=== PATIENT | male | born 1945 | race Two or more races ===

== ENCOUNTER 2021-09-02 09:56 | Outpatient (REF) | payer OTHER, SELFPAY ==
[2021-09-02 11:43] LABS: Vitamin B12 371 pg/mL (200-900)
== END 2021-09-02 09:57 | disposition home or self-care (01) ==
LOC: HO.LAB 09:56
PROVIDERS: Psychiatry & Neurology Neurology; PCP Internal Medicine; Visit Provider Internal Medicine
DX: G31.84 Mild cognitive impairment of uncertain or unknown etiology (principal)
CPT/HCPCS: 36415; 82607

== ENCOUNTER → 2022-06-23 11:20 | Outpatient (BNVA) | payer OTHER, SELFPAY | PROVIDERS: PCP Internal Medicine; Visit Provider Nurse Practitioner | DX: Z01.818 Encounter for other preprocedural examination (principal); K74.60 Unspecified cirrhosis of liver; D64.9 Anemia, unspecified; F10.11 Alcohol abuse, in remission | CPT/HCPCS: 99202 ==

== ENCOUNTER 2022-06-24 12:21 | Outpatient (REF) | payer OTHER, SELFPAY ==
[2022-06-24 12:45] LABS: MANUAL DIFF FLAG NO
[2022-06-24 13:35] LABS: Basophils Percent Auto 0.6 % (0-2); Eosinophils Absolute Auto 0.1 X10*3/uL (0.0-0.4); Hematocrit 44.4 % (42.0-52.0); Hemoglobin 15.3 g/dl (14.0-18.0); Imm Gran Abs Auto 0.01 X10*3/uL (0.00-0.03); Imm Gran Pct Auto 0.1 % (0.0-0.4); Lymphocytes Absolute Auto 2.9 X10*3/uL (1.2-4.9); Lymphocytes Percent Auto 40.1 % (20-40); Mean Corpuscular HGB Conc 34.5 g/dl (31.0-36.0); Mean Corpuscular Hemoglobin 33.3 pg (27.0-33.0); Mean Corpuscular Volume 96.5 fL (80.0-98.0); Mean Platelet Volume 9.8 fL (9.4-12.4); Monocytes Absolute Auto 0.6 X10*3/uL (0.1-1.2); Monocytes Percent Auto 7.7 % (2-11); Neutrophils Absolute Auto 3.7 x10*3/uL (2.0-8.3); Neutrophils Percent Auto 50.5 % (45-73); Platelet Count 234 X10*3/uL (160-400); Red Cell Distribution Width 14.7 % (11.0-16.0); White Blood Count 7.3 X10*3/uL (4.8-10.8)
[2022-06-24 13:53] LABS: Alanine Aminotransferase 54 U/L (0-40); Albumin Level 4.4 g/dL (3.5-5.0); Alkaline Phosphatase 60 U/L (39-117); Amylase 56 U/L (28-100); Aspartate Amino Transferase 48 U/L (5-37); Bilirubin Direct 0.3 mg/dL (0.0-0.5); Bilirubin Total 0.9 mg/dL (0.0-1.0); Gamma Glutamyl Transpeptidase 33 U/L (11-51); Lipase 38 U/L (8-78); Total Protein 7.5 g/dL (6.5-8.0)
[2022-06-24 14:09] LABS: Ferritin 314 ng/mL (20-250)
[2022-06-25 07:03] LABS: HBS Num1 3.74 mIU/mL (0-7.99); HBc Num1 5.81 S/CO (0.00-0.79); HBsAGNum1 0.34 S/CO (0.00-0.99); HIV AB/AG Nonreactive (Nonreactive); HIV Num 1 0.06 S/CO (0.00-0.99); Hepatitis A Antibody IgM 0.22 Index (0-0.79); Hepatitis B Surface Antigen Negative (Negative); ~HepC Num1 0.07 S/CO (0.00-0.79); ~Hepatitis A Antibody IgM Nonreactive (Nonreactive); ~Hepatitis B Surface Antibody NONREACTIVE (Nonreactive); ~Hepatitis C Antibody Nonreactive (Nonreactive)
[2022-06-25 09:23] LABS: Hepatitis B Core Antibody Reactive (Nonreactive)
[2022-06-27 10:38] LABS: Hepatitis B Core Antibody IgM NON-REACTIVE (NON-REACTIVE)
[2022-06-28 13:48] LABS: Smooth Muscle Antibody <20 U (<20)
[2022-06-28 14:08] LABS: Alpha Fetoprotein 1.5 ng/mL (<6.1)
[2022-06-28 14:54] LABS: Anti Nuclear Antibody Screen POSITIVE (NEGATIVE)
[2022-06-29 12:29] LABS: Mitochondrial Antibodies NEGATIVE (NEGATIVE)
== END 2022-06-24 12:22 | disposition home or self-care (01) ==
LOC: HO.LAB 12:21
PROVIDERS: PCP Internal Medicine; Visit Provider Nurse Practitioner
DX: Z01.818 Encounter for other preprocedural examination (principal); Z11.4 Encounter for screening for human immunodeficiency virus [HIV]; D64.9 Anemia, unspecified; K74.60 Unspecified cirrhosis of liver; Z11.59 Encounter for screening for other viral diseases; Z72.89 Other problems related to lifestyle
CPT/HCPCS: 36415; 80076; 82105; 82140; 82150; 82728; 82977; 83690; 85025; 86015; 86038; 86039; 86255; 86256; 86704; 86705; 86706; 86709; 86803; 87340; 87389

== ENCOUNTER 2022-06-26 10:23 | Outpatient (REF) | payer OTHER, SELFPAY ==
[2022-06-26 11:05] LABS: Ammonia 30 umol/L (13-55)
== END 2022-06-26 10:24 | disposition home or self-care (01) ==
LOC: HO.LAB 10:23
PROVIDERS: PCP Internal Medicine; Visit Provider Nurse Practitioner
DX: Z01.818 Encounter for other preprocedural examination (principal); K74.60 Unspecified cirrhosis of liver; D64.9 Anemia, unspecified
CPT/HCPCS: 36415; 82140

== ENCOUNTER 2022-08-26 05:43 | Day surgery (SDC) | payer OTHER, SELFPAY ==
--- NOTE | 2022-08-25 13:45 | HO.ANESPROP2 ---
HPI - Anesthesia Eval Consult details Narrative: 77yo M for Upper Endoscopy and Colonoscopy [facility] Active Problems Active Problems: All Active Problems (Updated 06/29/22 @ 18:26 by MARC Borden) Memory problem (Acute) Cirrhosis (Acute) GERD (gastroesophageal reflux disease) (Acute) Pre-op examination (Acute) Anemia (Acute) BPH (benign prostatic hyperplasia) (Acute) Memory loss (Acute) Diabetic neuropathy (Acute) Blind left eye (Acute) Diabetic retinopathy (Acute) Bipolar disorder (Acute) Depression with anxiety (Acute) Gastritis (Acute) High cholesterol (Acute) Hypertension (Acute) History of alcohol abuse (Acute) Hepatic steatosis (Acute) Diabetes (Acute) Afib (Acute) Asthma (Acute) Past Medical History Medical History Chronic anticoagulation Retinal vein occlusion of left eye Surgical History Surgical History H/O colonoscopy H/O esophagogastroduodenoscopy Hx of appendectomy Social History Social History Alcohol intake: current Alcohol intake frequency: holidays/special occasions only Patient Tobacco Use Status: Never used Tobacco Meds Allergies Allergy/AdvReac Type Severity Reaction Status Date / Time No Known Allergies Allergy Verified 06/23/22 11:55 Home Medications Medication Instructions Recorded Confirmed Last Taken Type alcohol swabs (Easy Touch Alcohol pad topical BID diabetes mellitus 06/23/22 Unknown History Prep Pads) blood sugar diagnostic (OneTouch #10 ea 06/23/22 Unknown History Ultra Test strips) ciclopirox 0.77 % topical cream appl topical BID 06/23/22 Unknown History dapagliflozin 10 mg tablet 10 mg PO DAILY 06/23/22 08/26/22 Unknown History (Farxiga) dronedarone 400 mg tablet (Multaq) 400 mg PO BID 06/23/22 08/26/22 Unknown History fluticasone propionate 50 1 spray intranasal DAILY 06/23/22 08/26/22 Unknown History mcg/actuation nasal spray,suspension gabapentin 300 mg capsule 300 mg PO BID 06/23/22 08/26/22 Unknown History glimepiride 4 mg tablet 4 mg PO QAM 06/23/22 08/26/22 Unknown History hydrochlorothiazide 12.5 mg tablet 12.5 mg PO QAM 06/23/22 08/26/22 Unknown History lancets 33 gauge (TaniTouch Delmaddy #100 ea 06/23/22 Unknown History Plus Lancet) metformin 850 mg tablet 850 mg PO DAILY 06/23/22 08/26/22 Unknown History montelukast 10 mg tablet 10 mg PO QPM 06/23/22 08/26/22 Unknown History rosuvastatin 20 mg tablet 20 mg PO DAILY 06/23/22 08/26/22 Unknown History tamsulosin 0.4 mg capsule 0.4 mg PO DAILY 06/23/22 08/26/22 Unknown History Exam Exam Date and Time: August 25, 2022 1345 Pertinent Lab Results Pertinent Lab Results: Laboratory Tests 06/24/22 12:43 WBC 7.3 Hgb 15.3 Hct 44.4 Plt Count 234 Assessment and Plan Assessment Anesthesia Assessment: Chart Reviewed
--- NOTE | 2022-08-26 06:09 | MHC.SHP ---
Pre-Procedural Eval Section A Date of Service: 08/26/22 Section B Chief Complaint: Anemia, unspecified,GERD Relevant Family History (Specify if Yes): No Relevant Social History: None Present Medications: see Short Stay Collaborative assessment Medical History: Significant History (Asthma Afib - on Eliquis Diabetes Fatty liver - Hx of ETOH abuse Hypertension High Cholesterol Gastritis Depression/bipolar disorder Diabetic neuropathy Low back pain Blind left eye Diabetic retinopathy Memory loss BPH) History of Previous Operations: Relevant previous surgery/procedure and date(s) (Appendectomy EGD/colonoscopy - 2012, IH and antral gastritis Injection for retinal vein occlusion *) Allergies: Allergies Allergy/AdvReac Type Severity Reaction Status Date / Time No Known Allergies Allergy Verified 06/23/22 11:55 Review of Systems Sugical H&P ROS: Negative: Constitution, Cardiovascular, Respiratory, Neurological, Psychiatric, Hem-Onc, Allergic/Immunologic, Gastrointestinal, Genitourinary, Musculoskeletal, Integumentary, Endocrine and Eyes/Ears/Nose/Throat Exam Surgical H&P Exam: Normal: HEENT, Normal: Heart, Normal: Lungs, Normal: Extremities, Normal: Abdomen, Normal: Skin and Normal: Neurological Plan Diagnosis/Plan: Unchanged I have reviewed the history and physical and performed a pertinent physical examination on my patient. No changes have occurred unless specified. Time Spent With Patient Time: Total time managing care of this patient today ____ minutes.
[2022-08-26 06:15] VITALS: BP 132/69; PULSE 69; RESP 18; TEMP 36.1; O2SAT 96; BMI 28.7
[2022-08-26] MEDS: Lactated Ringers 1,000 ML 100 ML IVCONT (06:41)
[2022-08-26 06:55] LABS: Glucose, Whole Blood 97 mg/dL (60-115)
--- NOTE | 2022-08-26 07:39 | HO.ANESPROP2 ---
[facility] Active Problems Active Problems: All Active Problems (Updated 06/29/22 @ 18:26 by MARC Borden) Memory problem (Acute) Cirrhosis (Acute) GERD (gastroesophageal reflux disease) (Acute) Pre-op examination (Acute) Anemia (Acute) BPH (benign prostatic hyperplasia) (Acute) Memory loss (Acute) Diabetic neuropathy (Acute) Blind left eye (Acute) Diabetic retinopathy (Acute) Bipolar disorder (Acute) Depression with anxiety (Acute) Gastritis (Acute) High cholesterol (Acute) Hypertension (Acute) History of alcohol abuse (Acute) Hepatic steatosis (Acute) Diabetes (Acute) Afib (Acute) Asthma (Acute) Past Medical History Medical History Chronic anticoagulation Retinal vein occlusion of left eye Surgical History Surgical History H/O colonoscopy H/O esophagogastroduodenoscopy Hx of appendectomy Social History Social History Alcohol intake: current Alcohol intake frequency: holidays/special occasions only Patient Tobacco Use Status: Never used Tobacco Use of substances other than those prescribed or required for medical reasons: No Are you DNR?: No Advance Directives: No Advance Directives Information Provided: Yes Meds Allergies Allergy/AdvReac Type Severity Reaction Status Date / Time No Known Allergies Allergy Verified 06/23/22 11:55 Active Medications: Current Medications Lactated Ringer's (Lr) 1,000 mls @ 100 mls/hr IVCONT .Q10H ELIDA Last Admin: 08/26/22 06:41 Dose: 100 mls/hr Home Medications Medication Instructions Recorded Confirmed Last Taken Type alcohol swabs (Easy Touch Alcohol pad topical BID diabetes mellitus 06/23/22 Unknown History Prep Pads) blood sugar diagnostic (OneTouch #10 ea 06/23/22 Unknown History Ultra Test strips) ciclopirox 0.77 % topical cream appl topical BID 06/23/22 Unknown History dapagliflozin 10 mg tablet 10 mg PO DAILY 06/23/22 08/26/22 Unknown History (Farxiga) dronedarone 400 mg tablet (Multaq) 400 mg PO BID 06/23/22 08/26/22 Unknown History fluticasone propionate 50 1 spray intranasal DAILY 06/23/22 08/26/22 Unknown History mcg/actuation nasal spray,suspension gabapentin 300 mg capsule 300 mg PO BID 06/23/22 08/26/22 Unknown History glimepiride 4 mg tablet 4 mg PO QAM 06/23/22 08/26/22 Unknown History hydrochlorothiazide 12.5 mg tablet 12.5 mg PO QAM 06/23/22 08/26/22 Unknown History lancets 33 gauge (OneTouch Delica #100 ea 06/23/22 Unknown History Plus Lancet) metformin 850 mg tablet 850 mg PO DAILY 06/23/22 08/26/22 Unknown History montelukast 10 mg tablet 10 mg PO QPM 06/23/22 08/26/22 Unknown History rosuvastatin 20 mg tablet 20 mg PO DAILY 06/23/22 08/26/22 Unknown History tamsulosin 0.4 mg capsule 0.4 mg PO DAILY 06/23/22 08/26/22 Unknown History Exam Exam Date and Time: August 26, 2022 0739 Height,Weight and Vital Signs: Height 5 ft 10 in Weight 90.718 kg Last Vital Signs Temp 97.0 F 08/26/22 06:15 Pulse 69 08/26/22 06:15 Resp 18 08/26/22 06:15 BP 132/69 08/26/22 06:15 Pulse Ox 96 08/26/22 06:15 O2 Del Method Room Air 08/26/22 06:15 Pertinent Lab Results Pertinent Lab Results: Laboratory Tests 08/26/22 06:29 POC Glucose 97 Airway Mallampati Class: II TM Dist: >3cm Neck ROM: Full Denture: Upper and Lower Heart: RRR Lungs: CTA Assessment and Plan Final Anesthetic Review ASA Class: III Final Preanesthetic Review: Meds/Allgs Chart Reviewed, Consent Obtained/Reviewed and Anes Risks/Benef Reviewed Patient Risk: Intermediate Procedure Risk: Low Anesthetic Plan Anesthetic Plan: MAC: Disposition: Standard PACU
--- NOTE | 2022-08-26 07:42 | P.OP_ITS ---
Operative Note Operative Note Date of Service: 08/26/22 Narrative: Operative Information Procedure Description: EGD, Colonoscopy Indication: GERD< hx of anemia Anesthesia: MAC FLEXIBLE TRANSORAL UPPER GASTROINTESTINAL ENDOSCOPY AND COLONOSCOPY PROCEDURE NOTE UPPER ENDOSCOPY Consent: Indications for the procedure and potential complications of bleeding, perforation, reaction to medications and missed diagnosis were discussed with the patient and informed consent was obtained. Instrument: Olympus GIF H 190 J mid size upper endoscope Monitoring: Vital signs and clinical assessment, continuous EKG monitoring, Pulse oximetry, Carbon Dioxide monitoring and blood pressure monitoring were done throughout the procedure. Procedure: The patient was placed in the left lateral decubitis position and pre-procedure medications were administered and a bite block was placed. The endoscope was inserted into the mouth and advanced under direct vision to the third part of duodenum. A careful inspection was made as the upper endoscope was withdrawn including a retroflexed examination of the proximal stomach; Findings and interventions are described below. Findings: Larynx:normal Esophagus: GE junction at 43 cm, diaphragm hiatus at 43 cm, LA grade A esophagitis at the GEJ, bx taken as well as from the distal esophagus. No varices seen Stomach: PAtchy erythema with erosions at the antrum. Biopsies were obtained. Grade 2 flap valve on retroflexed examination of the cardia. Duodenum: Normal bulb and descending duodenum, Intervention: Biopsies as noted above COLONOSCOPY Instrument: Olympus variable stiffness pediatric scope 190L Colonoscopy Monitoring: Vital signs and clinical assessment, continuous EKG monitoring, Pulse oximetry, Carbon Dioxide monitoring and blood pressure monitoring were done throughout the procedure. Colon withdrawal time was 10 minutes. Procedure: The patient was placed in the left lateral decubitis position and pre-procedure medications were administered. After a digital rectal examination of the ano-rectum, the video colonoscope was inserted into the rectum and advanced through the colon to the cecum/TI. The colonoscope was slowly withdrawn in a retrograde panoramic fashion and the colon mucosa was carefully examined including a retroflexed view of the rectum. Findings and interventions are described below. Procedure Difficulty: easy Findings: Terminal Ileum-normal Cecum:normal Ascending Colon: normal Transverse Colon -normal Descending Colon:normal Sigmoid Colon: 8-10 mm sessile polyp removed with cold snare Rectum: Retroflexion with small internal hemorrhoids, grade I Anorectum - normal Colon preparation: Hawthorne Bowel Preparation Scale Right colon; 2 Transverse colon: 2 Left colon; 2 (0 = Unprepared colon segment with mucosa not seen due to solid stool that cannot be cleared. 1 = Portion of mucosa of the colon segment seen, but other areas of the colon segment not well seen due to staining, residual stool and/or opaque liquid. 2 = Minor amount of residual staining, small fragments of stool and/or opaque liquid, but mucosa of colon segment seen well. 3 = Entire mucosa of colon segment seen well with no residual staining, small fragments of stool or opaque liquid) Impression and Post Procedure Diagnosis: Endoscopy Findings: erosive esophagitis erosive gastritis Colonoscopy Findings: colon polyp internal hemorrhoids Plan: Await Pathology results Repeat Colonoscopy in 5-7 years if health allows or earlier if clinically indicated, otherwise this would be his last colonoscopy High fiber diet leaflet avoid straining at stool, epsom salts and sitz bath, anusol supps or cream If H pylori pos then treat, can consider PPI low dose if neg Above findings were reviewed with the patient and relevant handouts were provided if indicated.
[2022-08-26 08:17] VITALS: BP 104/74; PULSE 72; RESP 16; TEMP 36.8; O2SAT 95
[2022-08-26 08:31] VITALS: BP 117/81; PULSE 62; RESP 16; O2SAT 95
[2022-08-26 08:46] VITALS: BP 125/74; PULSE 68; RESP 16; TEMP 36.8; O2SAT 96
--- NOTE | 2022-08-26 09:29 | HO.POSTANES ---
Post Anesthesia Evaluation Post Anesthesia Evaluation Vital Signs: Vital Signs Temp Pulse Resp BP Pulse Ox O2 Del Method 08/26/22 08:46 98.3 F 68 16 125/74 96 Room Air 08/26/22 08:31 62 16 117/81 95 Room Air 08/26/22 08:17 98.2 F 72 16 104/74 95 Room Air 08/26/22 06:15 97.0 F 69 18 132/69 96 Room Air Anesthesia: Monitored Mental Status: Awake Pain Control: Satisfactory Nausea/Vomiting: None Hydration: Adequate Anesthesia-Related Issues: No Anes. Related Issues
== END 2022-08-26 09:23 | disposition home or self-care (01) ==
PROVIDERS: PCP Internal Medicine; Visit Provider Internal Medicine Gastroenterology
PROC: (CPT 45385; principal; 2022-08-26 07:30)
DX: D64.9 Anemia, unspecified (principal); D12.5 Benign neoplasm of sigmoid colon; K64.0 First degree hemorrhoids; K21.9 Gastro-esophageal reflux disease without esophagitis; K29.70 Gastritis, unspecified, without bleeding; K20.80 Other esophagitis without bleeding; K44.9 Diaphragmatic hernia without obstruction or gangrene; K74.60 Unspecified cirrhosis of liver; I48.91 Unspecified atrial fibrillation; I10 Essential (primary) hypertension; E78.00 Pure hypercholesterolemia, unspecified; H54.62 Unqualified visual loss, left eye, normal vision right eye; J45.909 Unspecified asthma, uncomplicated; R41.3 Other amnesia; N40.0 Benign prostatic hyperplasia without lower urinary tract symptoms; F10.11 Alcohol abuse, in remission; E11.40 Type 2 diabetes mellitus with diabetic neuropathy, unspecified; E11.319 Type 2 diabetes mellitus with unspecified diabetic retinopathy without macular edema; M54.50 Low back pain, unspecified; Z79.84 Long term (current) use of oral hypoglycemic drugs; Z79.01 Long term (current) use of anticoagulants; Z79.51 Long term (current) use of inhaled steroids; Z79.899 Other long term (current) drug therapy
CPT/HCPCS: 45385; 43239; 82947; 88305; 88342

== ENCOUNTER 2022-09-03 09:16 | Outpatient (REF) | payer OTHER, SELFPAY ==
[2022-09-03 10:29] LABS: Blood Urea Nitrogen 12 mg/dL (9-16); Estimated Glomerular Filt Rate 55
== END 2022-09-03 09:17 | disposition home or self-care (01) ==
LOC: HO.LAB 09:16
PROVIDERS: Nurse Practitioner; PCP Internal Medicine; Visit Provider Physical Medicine & Rehabilitation
DX: K29.70 Gastritis, unspecified, without bleeding (principal); F10.11 Alcohol abuse, in remission
CPT/HCPCS: 36415; 82565; 84520

== ENCOUNTER 2022-09-07 10:49 | Outpatient (REF) | payer OTHER, SELFPAY ==
--- NOTE | ~2022-09-07 | CT_ITS ---
EXAMINATION: CT ABDOMEN WITHOUT AND WITH CONTRAST CLINICAL INFORMATION: Cirrhosis COMPARISON: None available. TECHNIQUE: Contiguous axial thin section helical images of the abdomen were performed before and after the administration of 85 mL of Omnipaque 350 intravenous contrast. The data set was reformatted in the coronal and sagittal planes and reviewed on an independent workstation. This CT examination was performed using dose optimization techniques as appropriate, variously including the following: *Automated exposure control *Adjustment of mA and/or kV according to patient size (this includes techniques or standardized protocols for targeted exams where dose is matched to indication/reason for exam; i.e. extremities or head) *Use of iterative reconstruction technique DLP: 876 mGy-cm FINDINGS: LUNG BASES: Dependent bibasilar atelectasis. ABDOMINAL AND PELVIC WALL: Unremarkable. LIVER AND BILIARY TREE: Hypoattenuating hepatic parenchyma compatible with hepatic steatosis. No gian contour nodularity. No liver lesion identified. GALLBLADDER: Unremarkable. PANCREAS: Unremarkable. SPLEEN: Unremarkable. ADRENAL GLANDS: Unremarkable. KIDNEYS AND URETERS: Unremarkable. GASTROINTESTINAL TRACT: Colonic diverticulosis without evidence of diverticulitis. VASCULAR: Unremarkable. LYMPH NODES/PERITONEUM: No lymphadenopathy. FREE FLUID: None. OSSEOUS STRUCTURES: Unremarkable. CT/CT abdomen wo/w IV con IMPRESSION: Hepatic steatosis. No liver lesion identified.
[2022-09-07] MEDS: iohexoL 350 MG/ML 100 ML INFUS..BTL IV (11:30)
== END 2022-09-07 10:50 | disposition home or self-care (01) ==
LOC: HO.CT 10:49
PROVIDERS: Visit Provider Nurse Practitioner
DX: Z01.818 Encounter for other preprocedural examination (principal); D64.9 Anemia, unspecified; K74.60 Unspecified cirrhosis of liver
CPT/HCPCS: 74170; Q9967

== ENCOUNTER → 2022-09-17 14:15 | Outpatient (BNVA) | payer OTHER, SELFPAY | PROVIDERS: PCP Internal Medicine; Visit Provider Nurse Practitioner | DX: K74.60 Unspecified cirrhosis of liver (principal); K21.9 Gastro-esophageal reflux disease without esophagitis; K29.60 Other gastritis without bleeding; K27.9 Peptic ulcer, site unspecified, unspecified as acute or chronic, without hemorrhage or perforation; D64.9 Anemia, unspecified; B19.10 Unspecified viral hepatitis B without hepatic coma; F10.11 Alcohol abuse, in remission | CPT/HCPCS: 99212 ==

== ENCOUNTER → 2022-10-26 12:51 | Outpatient (BNVA) | payer OTHER, SELFPAY | PROVIDERS: Visit Provider Nurse Practitioner | DX: K22.10 Ulcer of esophagus without bleeding (principal); K27.9 Peptic ulcer, site unspecified, unspecified as acute or chronic, without hemorrhage or perforation; K21.9 Gastro-esophageal reflux disease without esophagitis; K59.00 Constipation, unspecified; F10.11 Alcohol abuse, in remission; Z79.899 Other long term (current) drug therapy | CPT/HCPCS: 99212 ==

== ENCOUNTER 2022-11-23 12:19 | Outpatient (AMB) | payer OTHER, SELFPAY ==
--- NOTE | 2022-11-23 12:20 | MHC.OFFVIS ---
Intake Vital Signs 11/23/22 12:36 Height 5 ft 10 in Weight 205 lb 0.478 oz BMI 29.4 BP 121/67 Blood Pressure Location Rt brachial Position Sitting Pulse 75 Intake Visit Reasons: 4 week follow up Intake Note: Patient presents to in office visit today in 4 weeks. CC: Reports he still feelings bloated and uncomfortable. Denies other GI symptoms today. Stacker Driver Required: Yes Allergies No Known Drug Allergies Allergy (Unknown, Verified 11/23/22 12:45) none iv contrast Adverse Reaction (Severe, Uncoded 09/17/22 14:28) Rash HPI 4 week follow up HPI Details Assessment & Plan (1) Constipation: ?Code(s): K59.00 - Constipation, unspecified ?Plan: [place] #DECLINES He is having trouble with bowel irritability, he will move them several times a day with some tenesmus. BUT he was taking the senna bid instead of 2 qhs. Will change and he can take 3 qhs if needed. Also, hem ay need bladder suspension surgery - still in the works with urology. HE continues on omeprazole.? While his GERD is well enough controlled I am sure it would be better with better bowel motility.? Depending on how his bloating resolves will consider adding simethicone. ROV 4 weeks. (2) Erosive esophagitis: ?Code(s): K22.10 - Ulcer of esophagus without bleeding (3) Peptic ulcer disease: ?Code(s): K27.9 - Peptic ulcer, site unspecified, unspecified as acute or chronic, without hemorrhage or perforation ?Plan: .? (4) GERD (gastroesophageal reflux disease): ?Code(s): K21.9 - Gastro-esophageal reflux disease without esophagitis (5) History of alcohol abuse: ?Comment: Actually continued and current significant alcohol use/abuse ?Code(s): F10.11 - Alcohol abuse, in remission (6) Hepatic steatosis: ?Comment: BASELINE LABS. 06/24/22 Plt Count 234 Estimated GFR Ferritin 314 H Total Bilirubin 0.9 Direct Bilirubin 0.3 GGT 33 AST 48 H ALT 54 H Alkaline Phosphatase 60 Amylase 56 Lipase 38 Alpha Fetoprotein 1.5 JACKELINE Screen POSITIVE A JACKELINE Titer 1:80 H Anti-Mitochondrial Ab NEGATIVE Anti-Smooth Muscle Ab <20 Hepatitis A IgM Ab Nonreactive Hep Bs Antigen Negative Hep Bs Antibody NONREACTIVE Hep B Core Total Ab Reactive Hep B Core IgM Ab NON-REACTIVE Hepatitis C Ab (EIA) Nonreactive HIV 1&2 Ab/P24 Ag 4thGn Nonreactive Estimated GFR [address] ABDOMEN AND PELVIS ? 09/13/22? FINDINGS: LUNG BASES: Dependent bibasilar atelectasis.? ABDOMINAL AND PELVIC WALL:? Unremarkable.? LIVER AND BILIARY TREE: Hypoattenuating hepatic parenchyma compatible with hepatic steatosis. No gian contour nodularity. No liver lesion identified.? GALLBLADDER: Unremarkable.? PANCREAS: Unremarkable.? SPLEEN: Unremarkable.? ADRENAL GLANDS: Unremarkable.? KIDNEYS AND URETERS: Unremarkable.? GASTROINTESTINAL TRACT: Colonic diverticulosis without evidence of diverticulitis. VASCULAR: Unremarkable. LYMPH NODES/PERITONEUM: No lymphadenopathy. FREE FLUID: None. OSSEOUS STRUCTURES: Unremarkable.? CT/CT abdomen wo/w IV con IMPRESSION: Hepatic steatosis. No liver lesion identified. ?Code(s): K76.0 - Fatty (change of) liver, not elsewhere classified ? ? ? Medications: Changed From sennosides (senna) 17.2 mg (2 x 8.6 m g) PO BEDTIME 30 d ays 60 caps 3RF co nstipation ? ? To sennosides (senna) 25.8 mg (3 x 8.6 m g) PO BEDTIME 30 d ays 90 caps 3RF co nstipation ? ? Refilled omeprazole 40 mg? PO DAILY 30 days 30 caps 6RF A ? ? TODAYS VISIT [place] # Declines He continues to be bloated, but he is only taking 1 senna qhs. I advise him to take 2 qhs and write this out for him. He also takes omeprazole 40mg qd and I am adding simethicone 180mg tidac. He does not do well with pill names, goes by what they look like. ROV 6 weeks. [facility] Medical History Chronic anticoagulation Cirrhosis Erosive gastritis Retinal vein occlusion of left eye Surgical History H/O colonoscopy H/O esophagogastroduodenoscopy Hx of appendectomy Social History Alcohol intake: current Alcohol intake frequency: holidays/special occasions only Patient Tobacco Use Status: Never used Tobacco Review of Systems Const Denies fatigue, Denies fever(s), Denies night sweats, Denies poor appetite and Denies weight loss Eyes Details: glasses Reports requires corrective lenses ENT Reports Normal hearing present, Denies dental pain, Denies dysphagia, Denies hearing loss, Denies mouth pain, Denies odynophagia, Denies throat swelling, Denies tongue swelling and Reports other (Dentition adequate) Card Reports no additional complaints Resp Reports no additional complaints GI Denies abdominal pain, Denies melena, Reports bloating, Denies hematochezia, Reports constipation, Denies GI cramping, Denies dysphagia, Denies excessive flatus, Denies early satiety, Reports heartburn, Denies diarrhea, Denies nausea, Denies odynophagia, Denies vomiting and Denies hematemesis Skin/Breast Denies pruritus, Denies lesions, Denies rash and Denies jaundice Neuro Reports Normal hearing present and Denies Abnormal speech present Endo Denies fatigue Aller/Immun Denies throat swelling and Denies tongue swelling Physical Exam Vital Signs: Last Vital Signs Pulse 75 11/23/22 12:36 BP 121/67 11/23/22 12:36 BMI result Body Mass Index 29.4 Const General: cooperative, no acute distress, well developed and well groomed Nutritional Appearance: well nourished and obese centrally obese Orientation/consciousness: oriented to person, oriented to place and oriented to time Limitations: language barrier HEENT Head: Yes normocephalic and Yes atraumatic Eyes General: appearance normal, both eyes and all related structures Pupils: Equal, round and reactive pupils present Neck Neck: Yes normal visual inspection and Yes no lymphadenopathy Thyroid: Thyroid normal Resp Effort & Inspection: normal respiratory effort and able to speak in complete sentences Auscultation: clear to auscultation bilaterally Cardio Rate: regular rate Rhythm: regular rhythm Heart sounds: Normal, physiologic split S2 sound present Peripheral pulses: radial pulses present and posterior tibial pulses present GI Inspection: Yes distended, No Abdominal panniculus present and Yes obesity Palpation (GI): Soft to palpation, nontender, no guarding, not rigid and No hepatosplenomegaly present Percussion: Yes normal to percussion Auscultation: normal bowel sounds Rectal Exam - Male: Yes deferred Skin General skin exam: no rashes or lesions noted, turgor normal, skin not dry, no jaundice, No spider nevi and no striae Rashes: no rashes Nails: normal Neuro General: oriented to person, oriented to place and oriented to time Cranial nerves: Yes Equal, round and reactive pupils present and Yes Normal hearing present Speech: No Abnormal speech present Extrem General: Yes normal to inspection, No clubbing, No cyanosis and No edema Psych Appearance: grossly normal and well kempt Mental Status: mental status grossly normal Speech and movement: Normal speech and movement present Affect: normal affect Attitude: cooperative Thought process: Normal thought process present and not confabulating Thought content: Normal thought content present Insight: Limited insight present (Psych) Judgement: Limited judgement present (Psych) Assessment & Plan Assessment & Plan (1) Constipation: Code(s): K59.00 - Constipation, unspecified Plan: [place] # Declines He continues to be bloated, but he is only taking 1 senna qhs. I advise him to take 2 qhs and write this out for him. He also takes omeprazole 40mg qd and I am adding simethicone 180mg tidac. He does not do well with pill names, goes by what they look like. ROV 6 weeks. (2) Erosive esophagitis: Code(s): K22.10 - Ulcer of esophagus without bleeding (3) Peptic ulcer disease: Code(s): K27.9 - Peptic ulcer, site unspecified, unspecified as acute or chronic, without hemorrhage or perforation (4) GERD (gastroesophageal reflux disease): Code(s): K21.9 - Gastro-esophageal reflux disease without esophagitis (5) Memory problem: Code(s): R41.3 - Other amnesia (6) History of alcohol abuse: Comment: Actually continued and current significant alcohol use/abuse Code(s): F10.11 - Alcohol abuse, in remission (7) Hepatic steatosis: Comment: BASELINE LABS. 06/24/22 Plt Count 234 Estimated GFR Ferritin 314 H Total Bilirubin 0.9 Direct Bilirubin 0.3 GGT 33 AST 48 H ALT 54 H Alkaline Phosphatase 60 Amylase 56 Lipase 38 Alpha Fetoprotein 1.5 JACKELINE Screen POSITIVE A JACKELINE Titer 1:80 H Anti-Mitochondrial Ab NEGATIVE Anti-Smooth Muscle Ab <20 Hepatitis A IgM Ab Nonreactive Hep Bs Antigen Negative Hep Bs Antibody NONREACTIVE Hep B Core Total Ab Reactive Hep B Core IgM Ab NON-REACTIVE Hepatitis C Ab (EIA) Nonreactive HIV 1&2 Ab/P24 Ag 4thGn Nonreactive Estimated GFR [address]monia [address] ABDOMEN AND PELVIS 09/13/22? FINDINGS: LUNG BASES: Dependent bibasilar atelectasis.? ABDOMINAL AND PELVIC WALL:? Unremarkable.? LIVER AND BILIARY TREE: Hypoattenuating hepatic parenchyma compatible with hepatic steatosis. No gian contour nodularity. No liver lesion identified.? GALLBLADDER: Unremarkable.? PANCREAS: Unremarkable.? SPLEEN: Unremarkable.? ADRENAL GLANDS: Unremarkable.? KIDNEYS AND URETERS: Unremarkable.? GASTROINTESTINAL TRACT: Colonic diverticulosis without evidence of diverticulitis. VASCULAR: Unremarkable. LYMPH NODES/PERITONEUM: No lymphadenopathy. FREE FLUID: None. OSSEOUS STRUCTURES: Unremarkable.? CT/CT abdomen wo/w IV con IMPRESSION: Hepatic steatosis. No liver lesion identified. Code(s): K76.0 - Fatty (change of) liver, not elsewhere classified Medications: New simethicone after meals 180 mg PO .tidac 30 days 90 caps 3RF Refilled sennosides (senna) 25.8 mg (3 x 8.6 mg) PO BEDTIME 30 days 90 caps 6RF constipation omeprazole 40 mg PO DAILY 30 days 30 caps 6RF Coding Level of Care Code Est Pt Level 3 (20365) Diagnoses Constipation K59.00 Erosive esophagitis K22.10 Peptic ulcer disease K27.9 GERD (gastroesophageal reflux disease) K21.9 Memory problem R41.3 History of alcohol abuse F10.11 Hepatic steatosis K76.0
[2022-11-23 12:36] VITALS: BP 121/67; PULSE 75; BMI 29.4
== END 2022-11-23 13:01 | disposition home or self-care (01) ==
PROVIDERS: PCP Internal Medicine; Visit Provider Nurse Practitioner
DX: K59.00 Constipation, unspecified (principal); K22.10 Ulcer of esophagus without bleeding; K27.9 Peptic ulcer, site unspecified, unspecified as acute or chronic, without hemorrhage or perforation; K21.9 Gastro-esophageal reflux disease without esophagitis; R41.3 Other amnesia; F10.11 Alcohol abuse, in remission; K76.0 Fatty (change of) liver, not elsewhere classified
CPT/HCPCS: 99213

== ENCOUNTER → 2022-11-23 12:19 | Outpatient (BNVA) | payer OTHER, SELFPAY | PROVIDERS: PCP Internal Medicine; Visit Provider Nurse Practitioner | DX: K59.00 Constipation, unspecified (principal); K22.10 Ulcer of esophagus without bleeding; K27.9 Peptic ulcer, site unspecified, unspecified as acute or chronic, without hemorrhage or perforation; K21.9 Gastro-esophageal reflux disease without esophagitis; R41.3 Other amnesia; K76.0 Fatty (change of) liver, not elsewhere classified; F10.11 Alcohol abuse, in remission | CPT/HCPCS: 99212 ==

== ENCOUNTER 2023-01-11 12:32 | Outpatient (AMB) | payer OTHER, SELFPAY ==
--- NOTE | 2023-01-11 12:43 | MHC.OFFVIS ---
Intake Vital Signs 01/11/23 12:47 Height 5 ft 10 in Weight 201 lb 8.04 oz BMI 28.9 BP 134/74 Blood Pressure Location Lt brachial Position Sitting Pulse 76 Intake Visit Reasons: 6 week follow up Intake Note: Patient presents to in office visit today in 6 weeks follow up of abdominal pain. CC: Pt c/o abdominal bloating and ocassional abdominal pain. Denies other GI symptoms today. Head Of Human Resources Required: Yes Allergies No Known Drug Allergies Allergy (Unknown, Verified 01/11/23 12:49) none iv contrast Adverse Reaction (Severe, Uncoded 09/17/22 14:28) Rash HPI 6 week follow up HPI Details Assessment & Plan (1) Constipation: Code(s): K59.00 - Constipation, unspecified Plan: Greenlandic # Declines He continues to be bloated, but he is only taking 1 senna qhs. I advise him to take 2 qhs and write this out for him. He also takes omeprazole 40mg qd and I am adding simethicone 180mg tidac. He does not do well with pill names, goes by what they look like. ROV 6 weeks. (2) Erosive esophagitis: Code(s): K22.10 - Ulcer of esophagus without bleeding (3) Peptic ulcer disease: Code(s): K27.9 - Peptic ulcer, site unspecified, unspecified as acute or chronic, without hemorrhage or perforation (4) GERD (gastroesophageal reflux disease): Code(s): K21.9 - Gastro-esophageal reflux disease without esophagitis (5) Memory problem: Code(s): R41.3 - Other amnesia (6) History of alcohol abuse: Comment: Actually continued and current significant alcohol use/abuse Code(s): F10.11 - Alcohol abuse, in remission (7) Hepatic steatosis: Comment: BASELINE LABS. 06/24/22 Plt Count 234 Estimated GFR Ferritin 314 H Total Bilirubin 0.9 Direct Bilirubin 0.3 GGT 33 AST 48 H ALT 54 H Alkaline Phosphatase 60 Amylase 56 Lipase 38 Alpha Fetoprotein 1.5 JACKELINE Screen POSITIVE A JACKELINE Titer 1:80 H Anti-Mitochondrial Ab NEGATIVE Anti-Smooth Muscle Ab <20 Hepatitis A IgM Ab Nonreactive Hep Bs Antigen Negative Hep Bs Antibody NONREACTIVE Hep B Core Total Ab Reactive Hep B Core IgM Ab NON-REACTIVE Hepatitis C Ab (EIA) Nonreactive HIV 1&2 Ab/P24 Ag 4thGn Nonreactive Estimated GFR [address] ABDOMEN AND PELVIS 09/13/22? FINDINGS: LUNG BASES: Dependent bibasilar atelectasis.? ABDOMINAL AND PELVIC WALL:? Unremarkable.? LIVER AND BILIARY TREE: Hypoattenuating hepatic parenchyma compatible with hepatic steatosis. No gian contour nodularity. No liver lesion identified.? GALLBLADDER: Unremarkable.? PANCREAS: Unremarkable.? SPLEEN: Unremarkable.? ADRENAL GLANDS: Unremarkable.? KIDNEYS AND URETERS: Unremarkable.? GASTROINTESTINAL TRACT: Colonic diverticulosis without evidence of diverticulitis. VASCULAR: Unremarkable. LYMPH NODES/PERITONEUM: No lymphadenopathy. FREE FLUID: None. OSSEOUS STRUCTURES: Unremarkable.? CT/CT abdomen wo/w IV con IMPRESSION: Hepatic steatosis. No liver lesion identified. Code(s): K76.0 - Fatty (change of) liver, not elsewhere classified Medications: New simethicone aft er meals 180 mg PO .tidac 30 days 90 caps 3R F Refilled sennosides (senna) 25.8 mg (3 x 8.6 m g) PO BEDTIME 30 d ays 90 caps 6RF co nstipation omeprazole 40 mg PO DAILY 30 days 30 caps 6RF TODAYS VISIT Greenlandic # declines He is from [facility]! He will be going there soon for vacation as his has family there. He continues to have lovett and bloating that onsets about 1 hour after eating. HOwever, he never received the simethicone. The pain will be better with eating, so he is eating 4 times a day. He did have erosions on his EGD in August, and he has confusion about the o2o I have 20 and40 at home. I had wanted him to take the 40mg to heal the erosions, and I think the 20mg came from his PCP, Dr. Caban. BUT, now I think I will change to protonix 40mg bid. He just changed his insurance back to [employer], so this may be covered for bid PPI. He is taking 2 senna a night and moving his bowels well, at times twice a day. I again write out the senna for his to buy OTC. ROV 3 weeks. bring all meds in a bag. [facility] Medical History Erosive gastritis Cirrhosis Retinal vein occlusion of left eye Chronic anticoagulation Surgical History H/O colonoscopy H/O esophagogastroduodenoscopy Hx of appendectomy Social History Alcohol intake: current Alcohol intake frequency: holidays/special occasions only Patient Tobacco Use Status: Never used Tobacco Review of Systems Const Denies fatigue, Denies fever(s), Denies night sweats, Denies poor appetite and Reports weight loss (lost 5 lbs) ENT Reports Normal hearing present, Denies dental pain, Denies dysphagia, Denies hearing loss, Denies mouth pain, Denies odynophagia, Denies throat swelling, Denies tongue swelling and Reports other (Dentition adequate) Card Reports no additional complaints Resp Reports no additional complaints GI Reports abdominal pain, Denies melena, Reports bloating, Denies hematochezia, Reports constipation, Denies GI cramping, Denies dysphagia, Denies excessive flatus, Denies early satiety, Reports dyspepsia, Reports heartburn, Denies diarrhea, Denies nausea, Denies odynophagia, Denies vomiting and Denies hematemesis Skin/Breast Denies pruritus, Denies lesions, Denies rash and Denies jaundice Neuro Reports Normal hearing present and Denies Abnormal speech present Endo Denies fatigue Aller/Immun Denies throat swelling and Denies tongue swelling Physical Exam Vital Signs: Last Vital Signs Pulse 76 01/11/23 12:47 BP 134/74 01/11/23 12:47 BMI result Body Mass Index 28.9 Const General: cooperative, no acute distress, well developed and well groomed Nutritional Appearance: well nourished and obese centrally obese Orientation/consciousness: oriented to person, oriented to place and oriented to time Limitations: No language barrier HEENT Head: Yes normocephalic and Yes atraumatic Eyes General: appearance normal, both eyes and all related structures Pupils: Equal, round and reactive pupils present Neck Neck: Yes normal visual inspection and Yes no lymphadenopathy Thyroid: Thyroid normal Resp Effort & Inspection: normal respiratory effort and able to speak in complete sentences Auscultation: clear to auscultation bilaterally Cardio Rate: regular rate Rhythm: regular rhythm Heart sounds: Normal, physiologic split S2 sound present Peripheral pulses: radial pulses present and posterior tibial pulses present GI Inspection: No distended, No Abdominal panniculus present and Yes obesity Palpation (GI): Soft to palpation, nontender, no guarding, not rigid and No hepatosplenomegaly present Percussion: Yes normal to percussion Auscultation: normal bowel sounds Rectal Exam - Male: Yes deferred Skin General skin exam: no rashes or lesions noted, turgor normal, skin not dry, no jaundice, No spider nevi and no striae Rashes: no rashes Nails: normal Neuro General: oriented to person, oriented to place and oriented to time Cranial nerves: Yes Equal, round and reactive pupils present and Yes Normal hearing present Speech: No Abnormal speech present Extrem General: Yes normal to inspection, No clubbing, No cyanosis and No edema Psych Appearance: grossly normal and well kempt Mental Status: mental status grossly normal Speech and movement: Normal speech and movement present Affect: normal affect Attitude: cooperative Thought process: Normal thought process present and not confabulating Thought content: Normal thought content present Insight: Limited insight present (Psych) Judgement: Limited judgement present (Psych) Assessment & Plan Assessment & Plan (1) Constipation: Code(s): K59.00 - Constipation, unspecified Plan: German # declines He is from [facility]! He will be going there soon for vacation as his has family there. He continues to have lovett and bloating that onsets about 1 hour after eating. HOwever, he never received the simethicone. The pain will be better with eating, so he is eating 4 times a day. He had a negative biopsy for H pylori on his EGD 08/2022; however he did have some erosions in the stomach. He did have erosions on his EGD in August, and he has confusion about the o2o I have 20 and40 at home. I had wanted him to take the 40mg to heal the erosions, and I think the 20mg came from his PCP, Dr. Caban. BUT, now I think I will change to protonix 40mg bid. He just changed his insurance back to [facility], so this may be covered for bid PPI. He is taking 2 senna a night and moving his bowels well, at times twice a day. I again write out the senna for his to buy OTC. ROV 3 weeks. bring all meds in a bag. (2) Erosive esophagitis: Code(s): K22.10 - Ulcer of esophagus without bleeding (3) Peptic ulcer disease: Code(s): K27.9 - Peptic ulcer, site unspecified, unspecified as acute or chronic, without hemorrhage or perforation (4) Tubular adenoma of colon: Comment: 2022 SCOPE EQUALS TA REPEAT IN 5 YEARS Code(s): D12.6 - Benign neoplasm of colon, unspecified (5) GERD (gastroesophageal reflux disease): Code(s): K21.9 - Gastro-esophageal reflux disease without esophagitis (6) Hepatic steatosis: Comment: BASELINE LABS. 06/24/22 Plt Count 234 Estimated GFR Ferritin 314 H Total Bilirubin 0.9 Direct Bilirubin 0.3 GGT 33 AST 48 H ALT 54 H Alkaline Phosphatase 60 Amylase 56 Lipase 38 Alpha Fetoprotein 1.5 JACKELINE Screen POSITIVE A JACKELINE Titer 1:80 H Anti-Mitochondrial Ab NEGATIVE Anti-Smooth Muscle Ab <20 Hepatitis A IgM Ab Nonreactive Hep Bs Antigen Negative Hep Bs Antibody NONREACTIVE Hep B Core Total Ab Reactive Hep B Core IgM Ab NON-REACTIVE Hepatitis C Ab (EIA) Nonreactive HIV 1&2 Ab/P24 Ag 4thGn Nonreactive Estimated GFR 55 Ammonia [address] ABDOMEN AND PELVIS 09/13/22? FINDINGS: LUNG BASES: Dependent bibasilar atelectasis.? ABDOMINAL AND PELVIC WALL:? Unremarkable.? LIVER AND BILIARY TREE: Hypoattenuating hepatic parenchyma compatible with hepatic steatosis. No gian contour nodularity. No liver lesion identified.? GALLBLADDER: Unremarkable.? PANCREAS: Unremarkable.? SPLEEN: Unremarkable.? ADRENAL GLANDS: Unremarkable.? KIDNEYS AND URETERS: Unremarkable.? GASTROINTESTINAL TRACT: Colonic diverticulosis without evidence of diverticulitis. VASCULAR: Unremarkable. LYMPH NODES/PERITONEUM: No lymphadenopathy. FREE FLUID: None. OSSEOUS STRUCTURES: Unremarkable.? CT/CT abdomen wo/w IV con IMPRESSION: Hepatic steatosis. No liver lesion identified. Code(s): K76.0 - Fatty (change of) liver, not elsewhere classified (7) Memory problem: Code(s): R41.3 - Other amnesia Medications: New pantoprazole (Protonix) 40 mg PO BID 30 days 60 tabs 6RF K22.10 - Ulcer of esophagus without bleeding, K27.9 - Peptic ulcer, site unspecified, unspecified as acute or chronic, without hemorrhage or perforation Refilled simethicone after meals 180 mg PO .tidac 30 days 90 caps 3RF Coding Level of Care Code Est Pt Level 3 (52655) Diagnoses Constipation K59.00 Erosive esophagitis K22.10 Peptic ulcer disease K27.9 Tubular adenoma of colon D12.6 GERD (gastroesophageal reflux disease) K21.9 Hepatic steatosis K76.0 Memory problem R41.3
[2023-01-11 12:47] VITALS: BP 134/74; PULSE 76; BMI 28.9
== END 2023-01-11 13:34 | disposition home or self-care (01) ==
PROVIDERS: PCP Internal Medicine; Visit Provider Nurse Practitioner
DX: K59.00 Constipation, unspecified (principal); K22.10 Ulcer of esophagus without bleeding; K27.9 Peptic ulcer, site unspecified, unspecified as acute or chronic, without hemorrhage or perforation; D12.6 Benign neoplasm of colon, unspecified; K21.9 Gastro-esophageal reflux disease without esophagitis; K76.0 Fatty (change of) liver, not elsewhere classified; R41.3 Other amnesia
CPT/HCPCS: 99213

== ENCOUNTER → 2023-01-11 12:32 | Outpatient (BNVA) | payer MEDICARE, SELFPAY | PROVIDERS: PCP Internal Medicine; Visit Provider Nurse Practitioner | DX: K59.00 Constipation, unspecified (principal); K22.10 Ulcer of esophagus without bleeding; K27.9 Peptic ulcer, site unspecified, unspecified as acute or chronic, without hemorrhage or perforation; K21.9 Gastro-esophageal reflux disease without esophagitis; K76.0 Fatty (change of) liver, not elsewhere classified; R14.3 Flatulence; Z86.010 Personal history of colon polyps | CPT/HCPCS: 99212 ==

== ENCOUNTER 2023-02-01 12:15 | Outpatient (REF) | payer OTHER, SELFPAY ==
[2023-02-01 13:11] LABS: MANUAL DIFF FLAG NO
[2023-02-01 13:57] LABS: Basophils Absolute Auto 0.1 X10*3/uL (0.0-0.2); Eosinophils Absolute Auto 0.4 X10*3/uL (0.0-0.4); Eosinophils Percent Auto 6.2 % (0-4); Hematocrit 41.5 % (42.0-52.0); Hemoglobin 14.5 g/dl (14.0-18.0); Imm Gran Abs Auto 0.02 X10*3/uL (0.00-0.03); Imm Gran Pct Auto 0.3 % (0.0-0.4); Lymphocytes Percent Auto 28.6 % (20-40); Mean Corpuscular HGB Conc 34.9 g/dl (31.0-36.0); Mean Corpuscular Volume 94.5 fL (80.0-98.0); Mean Platelet Volume 9.5 fL (9.4-12.4); Monocytes Absolute Auto 0.6 X10*3/uL (0.1-1.2); Neutrophils Absolute Auto 3.9 x10*3/uL (2.0-8.3); Neutrophils Percent Auto 55.9 % (45-73); Platelet Count 247 X10*3/uL (160-400); Red Blood Count 4.39 X10*6/uL (4.60-5.80); Red Cell Distribution Width 13.5 % (11.0-16.0)
[2023-02-01 14:26] LABS: Alanine Aminotransferase 57 U/L (0-40); Albumin Level 4.7 g/dL (3.5-5.0); Alkaline Phosphatase 62 U/L (39-117); Anion Gap 12 (12-20); Aspartate Amino Transferase 36 U/L (5-37); Bilirubin Total 0.5 mg/dL (0.0-1.0); Blood Urea Nitrogen 14 mg/dL (9-16); Calcium 9.9 mg/dL (8.4-10.2); Carbon Dioxide 23 mmol/L (22-29); Chloride 106 mmol/L (96-108); Estimated Glomerular Filt Rate 51; Glucose Random 212 mg/dL (60-115); Potassium 3.2 mmol/L (3.3-5.1); Sodium 138 mmol/L (135-145)
[2023-02-03 12:48] LABS: Alpha Fetoprotein 1.3 ng/mL (<6.1)
== END 2023-02-01 12:16 | disposition home or self-care (01) ==
LOC: HO.LAB 12:15
PROVIDERS: PCP Internal Medicine; Visit Provider Nurse Practitioner
DX: K27.9 Peptic ulcer, site unspecified, unspecified as acute or chronic, without hemorrhage or perforation (principal); R14.0 Abdominal distension (gaseous); K59.00 Constipation, unspecified; K22.10 Ulcer of esophagus without bleeding; D12.6 Benign neoplasm of colon, unspecified; K21.9 Gastro-esophageal reflux disease without esophagitis; R10.11 Right upper quadrant pain; K76.0 Fatty (change of) liver, not elsewhere classified; F10.11 Alcohol abuse, in remission
CPT/HCPCS: 36415; 80053; 82105; 85025

== ENCOUNTER 2023-02-01 12:15 | Outpatient (AMB) | payer OTHER, SELFPAY ==
--- NOTE | 2023-02-01 12:17 | A.OFFVIS_ITS ---
Intake Vital Signs 02/01/23 12:20 Height 5 ft 10 in Weight 196 lb 3.382 oz BMI 28.2 BP 119/58 L Blood Pressure Location Lt brachial Position Sitting Pulse 70 Intake Visit Reasons: 3 week follow up Intake Note: Dimitry presents in the office as a 3 week follow up. CC: HE states that he does not know his med names but everything is the same. No concerns today. Allergies iv contrast Adverse Reaction (Severe, Uncoded 02/01/23 12:19) Rash HPI 3 week follow up HPI Details Assessment & Plan (1) Constipation: Code(s): K59.00 - Constipation, unspecified Plan: Danish # declines He is from [facility]! He will be going there soon for vacation as his has family there. He continues to have lovett and bloating that onsets about 1 hour after eating. HOwever, he never received the simethicone. The pain will be better with eating, so he is eating 4 times a day. He had a negative biopsy for H pylori on his EGD 08/2022; however he did have some erosions in the stomach. He did have erosions on his EGD in August, and he has confusion about the o2o I have 20 and40 at home. I had wanted him to take the 40mg to heal the erosions, and I think the 20mg came from his PCP, Dr. Caban. BUT, now I think I will change to protonix 40mg bid. He just changed his insurance back to [employer], so this may be covered for bid PPI. He is taking 2 senna a night and moving his bowels well, at times twice a day. I again write out the senna for his to buy OTC. ROV 3 weeks. bring all meds in a bag. (2) Erosive esophagitis: Code(s): K22.10 - Ulcer of esophagus without bleeding (3) Peptic ulcer disease: Code(s): K27.9 - Peptic ulcer, site unspecified, unspecified as acute or chronic, without hemorrhage or perforation (4) Tubular adenoma of colon: Comment: 2022 SCOPE EQUALS TA REPEAT IN 5 YEARS Code(s): D12.6 - Benign neoplasm of colon, unspecified (5) GERD (gastroesophageal reflux diseas e): Code(s): K21.9 - Gastro-esophageal reflux disease without esophagitis (6) Hepatic steatosis: Comment: BASELINE LABS. 06/24/22 Plt Count 234 Estimated GFR Ferritin 314 H Total Bilirubin 0.9 Direct Bilirubin 0.3 GGT 33 AST 48 H ALT 54 H Alkaline Phosphatase 60 Amylase 56 Lipase 38 Alpha Fetoprotein 1.5 JACKELINE Screen POSITIVE A JACKELINE Titer 1:80 H Anti-Mitochondrial Ab NEGATIVE Anti-Smooth Muscle Ab <20 Hepatitis A IgM Ab Nonreactive Hep Bs Antigen Negative Hep Bs Antibody NONREACTIVE Hep B Core Total Ab Reactive Hep B Core IgM Ab NON-REACTIVE Hepatitis C Ab (EIA) Nonreactive HIV 1&2 Ab/P24 Ag 4thGn Nonreactive Estimated GFR [address] ABDOMEN AND PELVIS 09/13/22? FINDINGS: LUNG BASES: Dependent bibasilar atelectasis.? ABDOMINAL AND PELVIC WALL:? Unremarkable.? LIVER AND BILIARY TREE: Hypoattenuating hepatic parenchyma compatible with hepatic steatosis. No gian contour nodularity. No liver lesion identified.? GALLBLADDER: Unremarkable.? PANCREAS: Unremarkable.? SPLEEN: Unremarkable.? ADRENAL GLANDS: Unremarkable.? KIDNEYS AND URETERS: Unremarkable.? GASTROINTESTINAL TRACT: Colonic diverticulosis without evidence of diverticulitis. VASCULAR: Unremarkable. LYMPH NODES/PERITONEUM: No lymphadenopathy. FREE FLUID: None. OSSEOUS STRUCTURES: Unremarkable.? CT/CT abdomen wo/w IV con IMPRESSION: Hepatic steatosis. No liver lesion identified. Code(s): K76.0 - Fatty (change of) liver, not elsewhere classified (7) Memory problem: Code(s): R41.3 - Other amnesia Medications: New pantoprazole (Prot rafal) 40 mg PO BID 30 d ays 60 tabs 6RF K22.10 - Ulcer of esophagus without bleeding, K27.9 - Peptic ulcer, site unspecified, unsp ecified as acute o r chronic, without hemorrhage or per foration Refilled simethicone aft er meals 180 mg PO .tidac 30 days 90 caps 3R F TODAYS VISIT He is due for monitoring for his HERNANDEZ. I have ordered labs and a repeat ultrasound. He is worried about the finding of the Hep B infection, he says his dtr was saying it was from sex. I explain that this is no necessarily so as it can be spread from close contact. He continues to have bloating after eating which really bothers him, It is worse in the morning. He has not yet tried Gas X as it is not covered by insurance. so I again write this out for him to buy OTC. He says he is taking the pantoprazole bid now, he was only on omeprazole 20mg before. He has lost another 5 lbs he thinks is r/t not being able to eat larger portions. All however the differential diagnosis is wide and could include a lack of resolution of his peptic ulcer disease, affects from his diabetic medication farxiga which does promote weight loss (studies have not look that whether this has any effect on gastric emptying) and hopefully it is not bloating related to worsening liver function ascites.. It is most likely that his digestive abilities are simply slowing down as he ages and he needs to eat smaller more frequent meals. He is agreeable to getting repeat labs and ultrasound to assess his liver disease. Return office visit in 8 weeks. COUNT INCLUDES THE [facility] Medical History Erosive gastritis Cirrhosis Retinal vein occlusion of left eye Chronic anticoagulation Surgical History H/O colonoscopy H/O esophagogastroduodenoscopy Hx of appendectomy Social History Alcohol intake: current Alcohol intake frequency: holidays/special occasions only Patient Tobacco Use Status: Never used Tobacco Review of Systems Const Denies fatigue, Denies fever(s), Denies night sweats, Denies poor appetite and Reports weight loss Eyes Details: Classes Reports requires corrective lenses ENT Reports Normal hearing present, Denies dental pain, Denies dysphagia, Denies hearing loss, Denies mouth pain, Denies odynophagia, Denies throat swelling, Denies tongue swelling and Reports other (Dentition adequate) Card Reports no additional complaints Resp Reports no additional complaints GI Denies abdominal pain, Denies melena, Reports bloating, Denies hematochezia, Reports constipation, Denies GI cramping, Denies dysphagia, Denies excessive flatus, Reports early satiety, Reports heartburn, Denies diarrhea, Denies nausea, Denies odynophagia, Denies vomiting and Denies hematemesis Skin/Breast Denies pruritus, Denies lesions, Denies rash and Denies jaundice Neuro Reports Normal hearing present and Denies Abnormal speech present Endo Denies fatigue Aller/Immun Denies throat swelling and Denies tongue swelling Physical Exam Vital Signs: Last Vital Signs Pulse 70 02/01/23 12:20 BP 119/58 L 02/01/23 12:20 BMI result Body Mass Index 28.2 Const General: cooperative, no acute distress, well developed and well groomed Nutritional Appearance: well nourished and obese Orientation/consciousness: oriented to person, oriented to place and oriented to time Limitations: No language barrier HEENT Head: Yes normocephalic and Yes atraumatic Eyes General: appearance normal, both eyes and all related structures Pupils: Equal, round and reactive pupils present Neck Neck: Yes normal visual inspection and Yes no lymphadenopathy Thyroid: Thyroid normal Resp Effort & Inspection: normal respiratory effort and able to speak in complete sentences Auscultation: clear to auscultation bilaterally Cardio Rate: regular rate Rhythm: regular rhythm Heart sounds: Normal, physiologic split S2 sound present Peripheral pulses: radial pulses present and posterior tibial pulses present GI Inspection: No distended, No Abdominal panniculus present and Yes obesity Palpation (GI): Soft to palpation, nontender, no guarding, not rigid and No hepatosplenomegaly present Percussion: Yes normal to percussion Auscultation: normal bowel sounds Rectal Exam - Male: Yes deferred Skin General skin exam: no rashes or lesions noted, turgor normal, skin not dry, no jaundice, No spider nevi and no striae Rashes: no rashes Nails: normal Neuro General: oriented to person, oriented to place and oriented to time Cranial nerves: Yes Equal, round and reactive pupils present and Yes Normal hearing present Speech: No Abnormal speech present Extrem General: Yes normal to inspection, No clubbing, No cyanosis and No edema Psych Appearance: grossly normal and well kempt Mental Status: mental status grossly normal Speech and movement: Normal speech and movement present Affect: normal affect Attitude: cooperative Thought process: Normal thought process present and not confabulating Thought content: Normal thought content present Insight: Limited insight present (Psych) Judgement: Limited judgement present (Psych) Assessment & Plan Assessment & Plan (1) Peptic ulcer disease: Code(s): K27.9 - Peptic ulcer, site unspecified, unspecified as acute or chronic, without hemorrhage or perforation Plan: He is due for monitoring for his HERNANDEZ. I have ordered labs and a repeat ultrasound. He is worried about the finding of the Hep B infection, he says his dtr was saying it was from sex. I explain that this is no necessarily so as it can be spread from close contact. He continues to have bloating after eating which really bothers him, It is worse in the morning. He has not yet tried Gas X as it is not covered by insurance. so I again write this out for him to buy OTC. However taking pantoprazole twice a day has resolved any pain or swallowing problems/heartburn that he had prior to the EGD. He says he is taking the pantoprazole bid now, he was only on omeprazole 20mg before. He has lost another 5 lbs he thinks is r/t not being able to eat larger portions. All however the differential diagnosis is wide and could include a lack of resolution of his peptic ulcer disease, affects from his diabetic medication farxiga which does promote weight loss (studies have not look that whether this has any effect on gastric emptying) and hopefully it is not bloating related to worsening liver function ascites.. It is most likely that his digestive abilities are simply slowing down as he ages and he needs to eat smaller more frequent meals. He is agreeable to getting repeat labs and ultrasound to assess his liver disease. Return office visit in 8 weeks. 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 06/24/22 Plt Count 234 Estimated GFR Ferritin 314 H Total Bilirubin 0.9 Direct Bilirubin 0.3 GGT 33 AST 48 H ALT 54 H Alkaline Phosphatase 60 Amylase 56 Lipase 38 Alpha Fetoprotein 1.5 JACKELINE Screen POSITIVE A JACKELINE Titer 1:80 H Anti-Mitochondrial Ab NEGATIVE Anti-Smooth Muscle Ab <20 Hepatitis A IgM Ab Nonreactive Hep Bs Antigen Negative Hep Bs Antibody NONREACTIVE Hep B Core Total Ab Reactive Hep B Core IgM Ab NON-REACTIVE Hepatitis C Ab (EIA) Nonreactive HIV 1&2 Ab/P24 Ag 4thGn Nonreactive Estimated GFR 55 Ammonia [address] ABDOMEN AND PELVIS 09/13/22? FINDINGS: LUNG BASES: Dependent bibasilar atelectasis.? ABDOMINAL AND PELVIC WALL:? Unremarkable.? LIVER AND BILIARY TREE: Hypoattenuating hepatic parenchyma compatible with hepatic steatosis. No gian contour nodularity. No liver lesion identified.? GALLBLADDER: Unremarkable.? PANCREAS: Unremarkable.? SPLEEN: Unremarkable.? ADRENAL GLANDS: Unremarkable.? KIDNEYS AND URETERS: Unremarkable.? GASTROINTESTINAL TRACT: Colonic diverticulosis without evidence of diverticulitis. VASCULAR: Unremarkable. LYMPH NODES/PERITONEUM: No lymphadenopathy. FREE FLUID: None. OSSEOUS STRUCTURES: Unremarkable.? CT/CT abdomen wo/w IV con IMPRESSION: Hepatic steatosis. No liver lesion identified. Code(s): K76.0 - Fatty (change of) liver, not elsewhere classified Orders: Orders Alpha Fetoprotein Today F10.11 - Alcohol abuse, in remission, K76.0 - Fatty (change of) liver, not elsewhere classified Comprehensive Met. Panel Today F10.11 - Alcohol abuse, in remission, K76.0 - Fatty (change of) liver, not elsewhere classified Complete Blood Count Auto Diff Today F10.11 - Alcohol abuse, in remission, K76.0 - Fatty (change of) liver, not elsewhere classified US abdomen complete Today F10.11 - Alcohol abuse, in remission, K76.0 - Fatty (change of) liver, not elsewhere classified Medications: New simethicone after meals 180 mg PO TID 30 days 90 caps 3RF Discontinued simethicone after meals Discontinued Reason: Doctor's Order 180 mg PO .tidac 30 days 90 caps 3RF omeprazole Discontinued Reason: Doctor's Order 40 mg PO DAILY 30 caps 0RF Coding Level of Care Code Est Pt Level 3 (83154) Diagnoses Peptic ulcer disease K27.9 Abdominal bloating R14.0 Constipation K59.00 Erosive esophagitis K22.10 Tubular adenoma of colon D12.6 GERD (gastroesophageal reflux disease) K21.9 History of alcohol abuse F10.11 Hepatic steatosis K76.0
[2023-02-01 12:20] VITALS: BP 119/58; PULSE 70; BMI 28.2
== END 2023-02-01 12:50 | disposition home or self-care (01) ==
PROVIDERS: PCP Internal Medicine; Visit Provider Nurse Practitioner
DX: K27.9 Peptic ulcer, site unspecified, unspecified as acute or chronic, without hemorrhage or perforation (principal); R14.0 Abdominal distension (gaseous); K59.00 Constipation, unspecified; K22.10 Ulcer of esophagus without bleeding; D12.6 Benign neoplasm of colon, unspecified; K21.9 Gastro-esophageal reflux disease without esophagitis; F10.11 Alcohol abuse, in remission; K76.0 Fatty (change of) liver, not elsewhere classified
CPT/HCPCS: 99213

== ENCOUNTER 2023-03-04 08:18 | Outpatient (REF) | payer OTHER, SELFPAY ==
--- NOTE | ~2023-03-04 | US_ITS ---
EXAMINATION: US ABDOMEN COMPLETE CLINICAL INFORMATION: Fatty (change of) liver, not elsewhere classified. COMPARISON: CT abdomen 09/07/2022. TECHNIQUE: Real-time imaging of the abdominal viscera. FINDINGS: PANCREAS: The pancreas appears unremarkable, without masses or ductal dilatation, with the exception of the tail which is obscured by bowel gas. ABDOMINAL AORTA: The proximal, mid, and distal segments are normal in caliber. INFERIOR VENA CAVA: Visualized portions are normal. LIVER: The liver is normal in size. The liver contour is normal. There is diffuse increased liver parenchymal echogenicity, consistent with hepatic steatosis as seen on the prior CT scan. No focal hepatic lesion. There is no intrahepatic biliary duct dilatation seen. GALLBLADDER: The patient was fasting. The gallbladder is only minimally distended without evidence of stones, sludge, polyps, wall thickening or pericholecystic fluid. COMMON BILE DUCT: Normal in caliber measuring 0.4 cm in diameter. RIGHT KIDNEY: Normal. No hydronephrosis. No renal calculi or focal parenchymal lesions. The kidney measures 11.1 cm in maximum dimension. LEFT KIDNEY: Normal. No hydronephrosis. No renal calculi or focal parenchymal lesions. The kidney measures 10.9 cm in maximum dimension. SPLEEN: Normal. The spleen measures 9.4 cm in maximum dimension. FREE FLUID: None. US/US abdomen complete IMPRESSION: Hepatic steatosis.
== END 2023-03-04 08:19 | disposition home or self-care (01) ==
LOC: HO.US 08:18
PROVIDERS: PCP Internal Medicine; Visit Provider Nurse Practitioner
DX: K76.0 Fatty (change of) liver, not elsewhere classified (principal); F10.11 Alcohol abuse, in remission
CPT/HCPCS: 76700

== ENCOUNTER 2023-03-22 12:55 | Outpatient (AMB) | payer OTHER, SELFPAY ==
--- NOTE | 2023-03-22 13:00 | MHC.OFFVIS ---
Intake Vital Signs 03/22/23 13:22 Height 5 ft 10 in Weight 199 lb 4.766 oz BMI 28.6 BP 134/77 Blood Pressure Location Lt brachial Position Sitting Pulse 80 Intake Visit Reasons: 8 week follow up Intake Note: Patient presents to in office visit today in 8 weeks follow up of US and labs. CC: Patient reports feeling his abdomen bloated today and states he ran out of [place] medication. Allergies Iodinated Contrast Media Allergy (Severe, Verified 03/22/23 13:24) Rash iv contrast Adverse Reaction (Severe, Uncoded 02/01/23 12:19) Rash HPI 8 week follow up HPI Details Assessment & Plan (1) Peptic ulcer disease: Code(s): K27.9 - Peptic ulcer, site unspecified, unspecified as acute or chronic, without hemorrhage or perforation Plan: He is due for monitoring for his HERNANDEZ. I have ordered labs and a repeat ultrasound. He is worried about the finding of the Hep B infection, he says his dtr was saying it was from sex. I explain that this is no necessarily so as it can be spread from close contact. He continues to have bloating after eating which really bothers him, It is worse in the morning. He has not yet tried Gas X as it is not covered by insurance. so I again write this out for him to buy OTC. However taking pantoprazole twice a day has resolved any pain or swallowing problems/heartburn that he had prior to the EGD. He says he is taking the pantoprazole bid now, he was only on omeprazole 20mg before. He has lost another 5 lbs he thinks is r/t not being able to eat larger portions. All however the differential diagnosis is wide and could include a lack of resolution of his peptic ulcer disease, affects from his diabetic medication farxiga which does promote weight loss (studies have not look that whether this has any effect on gastric emptying) and hopefully it is not bloating related to worsening liver function ascites.. It is most likely that his digestive abilities are simply slowing down as he ages and he needs to eat smaller more frequent meals. He is agreeable to getting repeat labs and ultrasound to assess his liver disease. Return office visit in 8 weeks. 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 06/24/22 Plt Count 234 Estimated GFR Ferritin 314 H Total Bilirubin 0.9 Direct Bilirubin 0.3 GGT 33 AST 48 H ALT 54 H Alkaline Phosphatase 60 Amylase 56 Lipase 38 Alpha Fetoprotein 1.5 JACKELINE Screen POSITIVE A JACKELINE Titer 1:80 H Anti-Mitochondrial Ab NEGATIVE Anti-Smooth Muscle Ab <20 Hepatitis A IgM Ab Nonreactive Hep Bs Antigen Negative Hep Bs Antibody NONREACTIVE Hep B Core Total Ab Reactive Hep B Core IgM Ab NON-REACTIVE Hepatitis C Ab (EIA) Nonreactive HIV 1&2 Ab/P24 Ag 4thGn Nonreactive Estimated GFR [address] ABDOMEN AND PELVIS 09/13/22? FINDINGS: LUNG BASES: Dependent bibasilar atelectasis.? ABDOMINAL AND PELVIC WALL:? Unremarkable.? LIVER AND BILIARY TREE: Hypoattenuating hepatic parenchyma compatible with hepatic steatosis. No gian contour nodularity. No liver lesion identified.? GALLBLADDER: Unremarkable.? PANCREAS: Unremarkable.? SPLEEN: Unremarkable.? ADRENAL GLANDS: Unremarkable.? KIDNEYS AND URETERS: Unremarkable.? GASTROINTESTINAL TRACT: Colonic diverticulosis without evidence of diverticulitis. VASCULAR: Unremarkable. LYMPH NODES/PERITONEUM: No lymphadenopathy. FREE FLUID: None. OSSEOUS STRUCTURES: Unremarkable.? CT/CT abdomen wo/w IV con IMPRESSION: Hepatic steatosis. No liver lesion identified. Code(s): K76.0 - Fatty (change of) liver, not elsewhere classified Orders: Orders Alpha Fetoprotein Today F10.11 - Alcohol a buse, in remission , K76.0 - Fatty (c hange of) liver, n ot elsewhere class ified Comprehensive Met. Panel Today F10.11 - Alcohol a buse, in remission , K76.0 - Fatty (c hange of) liver, n ot elsewhere class ified Complete Blood Cou nt Auto Diff Today F10.11 - Alcohol a buse, in remission , K76.0 - Fatty (c hange of) liver, n ot elsewhere class ified US abdomen complet e Today F10.11 - Alcohol a buse, in remission , K76.0 - Fatty (c hange of) liver, n ot elsewhere class ified Medications: New simethicone aft er meals 180 mg PO TID 30 days 90 caps 3RF Discontinued simethicone aft er meals Discon tinued Reason: Do ctor's Order 180 mg PO .tidac 30 days 90 caps 3R F omeprazole Disc ontinued Reason: Doctor's Order 40 mg PO DAILY 30 caps 0RF LABS: Laboratory Tests 02/01/23 13:10 WBC 7.0 Hgb 14.5 Hct 41.5 L MCV 94.5 MCH 33.0 Plt Count 247 Estimated GFR 51 Total Bilirubin 0.5 AST 36 ALT 57 H Alkaline Phosphata se 62 Alpha Fetoprotein 1.3 ULTRASOUND OF THE ABDOMEN 03/06/23 FINDINGS: PANCREAS: The pancreas appears unremarkable, without masses or ductal dilatation, with the exception of the tail which is obscured by bowel gas. ABDOMINAL AORTA: The proximal, mid, and distal segments are normal in caliber. INFERIOR VENA CAVA: Visualized portions are normal. LIVER: The liver is normal in size. The liver contour is normal. There is diffuse increased liver parenchymal echogenicity, consistent with hepatic steatosis as seen on the prior CT scan. No focal hepatic lesion. There is no intrahepatic biliary duct dilatation seen. GALLBLADDER: The patient was fasting. The gallbladder is only minimally distended without evidence of stones, sludge, polyps, wall thickening or pericholecystic fluid. COMMON BILE DUCT: Normal in caliber measuring 0.4 cm in diameter. RIGHT KIDNEY: Normal. No hydronephrosis. No renal calculi or focal parenchymal lesions. The kidney measures 11.1 cm in maximum dimension. LEFT KIDNEY: Normal. No hydronephrosis. No renal calculi or focal parenchymal lesions. The kidney measures 10.9 cm in maximum dimension. SPLEEN: Normal. The spleen measures 9.4 cm in maximum dimension. FREE FLUID: None. US/US abdomen complete IMPRESSION: Hepatic steatosis. TODAYS VISIT HE DOES NOT DRINK ETOH EXCEPT OCCASIONAL!! His transaminases have improved and this is likely because he has lost 10 labs via intentional dieting. He is down to 190 and likely will try to go to 185 but feels that 180 is too low because of sagging/wrinkles! He continues on his omeprazole and simethicone with good control of his GERD and bloating. He will be going to [facility] for a vacation and returning in April!! ROV 6 mos. PENDING SALE TO [facility] Medical History Erosive gastritis Cirrhosis Retinal vein occlusion of left eye Chronic anticoagulation Surgical History H/O colonoscopy H/O esophagogastroduodenoscopy Hx of appendectomy Alcohol intake: current Alcohol intake frequency: holidays/special occasions only Patient Tobacco Use Status: Never used Tobacco Review of Systems Const Denies fatigue, Denies fever(s), Denies night sweats, Denies poor appetite and Reports weight loss Eyes Details: glasses Reports requires corrective lenses ENT Reports Normal hearing present, Denies dental pain, Denies dysphagia, Denies hearing loss, Denies mouth pain, Denies odynophagia, Denies throat swelling, Denies tongue swelling and Reports other (Dentition adequate) Card Reports no additional complaints Resp Reports no additional complaints GI Denies abdominal pain, Denies melena, Reports bloating, Denies hematochezia, Denies constipation, Denies GI cramping, Denies dysphagia, Denies excessive flatus, Denies early satiety, Reports heartburn, Denies diarrhea, Denies nausea, Denies odynophagia, Denies vomiting and Denies hematemesis Skin/Breast Denies pruritus, Denies lesions, Denies rash and Denies jaundice Neuro Reports Normal hearing present and Denies Abnormal speech present Endo Denies fatigue Aller/Immun Denies throat swelling and Denies tongue swelling Physical Exam Vital Signs: Last Vital Signs Pulse 80 03/22/23 13:22 BP 134/77 03/22/23 13:22 BMI result Body Mass Index 28.6 Const General: cooperative, no acute distress, well developed and well groomed Nutritional Appearance: well nourished and overweight Orientation/consciousness: oriented to person, oriented to place and oriented to time Limitations: language barrier HEENT Head: Yes normocephalic and Yes atraumatic Eyes General: appearance normal, both eyes and all related structures Pupils: Equal, round and reactive pupils present Neck Neck: Yes normal visual inspection and Yes no lymphadenopathy Thyroid: Thyroid normal Resp Effort & Inspection: normal respiratory effort and able to speak in complete sentences Auscultation: clear to auscultation bilaterally Cardio Rate: regular rate Rhythm: regular rhythm Heart sounds: Normal, physiologic split S2 sound present Peripheral pulses: radial pulses present and posterior tibial pulses present GI Inspection: No distended, No Abdominal panniculus present and Yes obesity Palpation (GI): Soft to palpation, nontender, no guarding, not rigid and No hepatosplenomegaly present Percussion: Yes normal to percussion Auscultation: normal bowel sounds Rectal Exam - Male: Yes deferred Skin General skin exam: no rashes or lesions noted, turgor normal, skin not dry, no jaundice, No spider nevi and no striae Rashes: no rashes Nails: normal Neuro General: oriented to person, oriented to place and oriented to time Cranial nerves: Yes Equal, round and reactive pupils present and Yes Normal hearing present Speech: No Abnormal speech present Extrem General: Yes normal to inspection, No clubbing, No cyanosis and No edema Psych Appearance: grossly normal and well kempt Mental Status: mental status grossly normal Speech and movement: Normal speech and movement present Affect: normal affect Attitude: cooperative Thought process: Normal thought process present and not confabulating Thought content: Normal thought content present Insight: Fair insight present (Psych) Judgement: Fair judgement present (Psych) Results Reviewed Results Reviewed: Laboratory Tests 02/01/23 13:10 WBC 7.0 Hgb 14.5 Hct 41.5 L MCV 94.5 MCH 33.0 Plt Count 247 Estimated GFR 51 Total Bilirubin 0.5 AST 36 ALT 57 H Alkaline Phosphatase 62 Alpha Fetoprotein 1.3 ULTRASOUND OF THE ABDOMEN 03/06/23 FINDINGS: PANCREAS: The pancreas appears unremarkable, without masses or ductal dilatation, with the exception of the tail which is obscured by bowel gas. ABDOMINAL AORTA: The proximal, mid, and distal segments are normal in caliber. INFERIOR VENA CAVA: Visualized portions are normal. LIVER: The liver is normal in size. The liver contour is normal. There is diffuse increased liver parenchymal echogenicity, consistent with hepatic steatosis as seen on the prior CT scan. No focal hepatic lesion. There is no intrahepatic biliary duct dilatation seen. GALLBLADDER: The patient was fasting. The gallbladder is only minimally distended without evidence of stones, sludge, polyps, wall thickening or pericholecystic fluid. COMMON BILE DUCT: Normal in caliber measuring 0.4 cm in diameter. RIGHT KIDNEY: Normal. No hydronephrosis. No renal calculi or focal parenchymal lesions. The kidney measures 11.1 cm in maximum dimension. LEFT KIDNEY: Normal. No hydronephrosis. No renal calculi or focal parenchymal lesions. The kidney measures 10.9 cm in maximum dimension. SPLEEN: Normal. The spleen measures 9.4 cm in maximum dimension. FREE FLUID: None. US/US abdomen complete IMPRESSION: Hepatic steatosis Assessment & Plan Assessment & Plan (1) Hepatic steatosis: Comment: BASELINE LABS. Laboratory Tests 06/24/22 Plt Count 234 Estimated GFR Ferritin 314 H Total Bilirubin 0.9 Direct Bilirubin 0.3 GGT 33 AST 48 H ALT 54 H Alkaline Phosphatase 60 Amylase 56 Lipase 38 Alpha Fetoprotein 1.5 JACKELINE Screen POSITIVE A JACKELINE Titer 1:80 H Anti-Mitochondrial Ab NEGATIVE Anti-Smooth Muscle Ab <20 Hepatitis A IgM Ab Nonreactive Hep Bs Antigen Negative Hep Bs Antibody NONREACTIVE Hep B Core Total Ab Reactive Hep B Core IgM Ab NON-REACTIVE Hepatitis C Ab (EIA) Nonreactive HIV 1&2 Ab/P24 Ag 4thGn Nonreactive Estimated GFR 55 Ammonia 30 CURRENT LABS . 02/01/23 13:10 WBC 7.0 Hgb 14.5 Hct 41.5 L MCV 94.5 MCH 33.0 Plt Count 247 Estimated GFR 51 Total Bilirubin 0.5 AST 36 ALT 57 H Alkaline Phosphatase 62 Alpha Fetoprotein 1.3 ULTRASOUND OF THE ABDOMEN 03/06/23 FINDINGS: PANCREAS: The pancreas appears unremarkable, without masses or ductal dilatation, with the exception of the tail which is obscured by bowel gas. ABDOMINAL AORTA: The proximal, mid, and distal segments are normal in caliber. INFERIOR VENA CAVA: Visualized portions are normal. LIVER: The liver is normal in size. The liver contour is normal. There is diffuse increased liver parenchymal echogenicity, consistent with hepatic steatosis as seen on the prior CT scan. No focal hepatic lesion. There is no intrahepatic biliary duct dilatation seen. GALLBLADDER: The patient was fasting. The gallbladder is only minimally distended without evidence of stones, sludge, polyps, wall thickening or pericholecystic fluid. COMMON BILE DUCT: Normal in caliber measuring 0.4 cm in diameter. RIGHT KIDNEY: Normal. No hydronephrosis. No renal calculi or focal parenchymal lesions. The kidney measures 11.1 cm in maximum dimension. LEFT KIDNEY: Normal. No hydronephrosis. No renal calculi or focal parenchymal lesions. The kidney measures 10.9 cm in maximum dimension. SPLEEN: Normal. The spleen measures 9.4 cm in maximum dimension. FREE FLUID: None. US/US abdomen complete IMPRESSION: Hepatic steatosis Code(s): K76.0 - Fatty (change of) liver, not elsewhere classified (2) GERD (gastroesophageal reflux disease): Code(s): K21.9 - Gastro-esophageal reflux disease without esophagitis (3) Constipation: Code(s): K59.00 - Constipation, unspecified (4) Peptic ulcer disease: Code(s): K27.9 - Peptic ulcer, site unspecified, unspecified as acute or chronic, without hemorrhage or perforation (5) Abdominal bloating: Code(s): R14.0 - Abdominal distension (gaseous) (6) Erosive esophagitis: Code(s): K22.10 - Ulcer of esophagus without bleeding Plan HE DOES NOT DRINK ETOH EXCEPT OCCASIONAL!! His transaminases have improved and this is likely because he has lost 10 labs via intentional dieting. He is down to 190 and likely will try to go to 185 but feels that 180 is too low because of sagging/wrinkles! He continues on his omeprazole and simethicone with good control of his GERD and bloating. He will be going to [facility] for a vacation and returning in April!! ROV 6 mos. Medications: Refilled simethicone after meals 180 mg PO TID 30 days 90 caps 6RF sennosides (senna) 25.8 mg (3 x 8.6 mg) PO BEDTIME 30 days 90 caps 6RF constipation pantoprazole (Protonix) 40 mg PO BID 30 days 60 tabs 6RF K22.10 - Ulcer of esophagus without bleeding, K27.9 - Peptic ulcer, site unspecified, unspecified as acute or chronic, without hemorrhage or perforation Coding Level of Care Code Est Pt Level 3 (79064) Diagnoses Hepatic steatosis K76.0 GERD (gastroesophageal reflux disease) K21.9 Constipation K59.00 Peptic ulcer disease K27.9 Abdominal bloating R14.0 Erosive esophagitis K22.10
[2023-03-22 13:22] VITALS: BP 134/77; PULSE 80; BMI 28.6
== END 2023-03-22 14:06 | disposition home or self-care (01) ==
PROVIDERS: PCP Internal Medicine; Visit Provider Nurse Practitioner
DX: K76.0 Fatty (change of) liver, not elsewhere classified (principal); K21.9 Gastro-esophageal reflux disease without esophagitis; K59.00 Constipation, unspecified; K27.9 Peptic ulcer, site unspecified, unspecified as acute or chronic, without hemorrhage or perforation; R14.0 Abdominal distension (gaseous); K22.10 Ulcer of esophagus without bleeding
CPT/HCPCS: 99213

== ENCOUNTER → 2023-03-22 12:55 | Outpatient (BNVA) | payer OTHER, SELFPAY | PROVIDERS: PCP Internal Medicine; Visit Provider Nurse Practitioner ==

== ENCOUNTER 2023-09-14 11:39 | Outpatient (AMB) | payer OTHER, SELFPAY ==
[2023-09-14 11:41] VITALS: BP 137/81; PULSE 81; BMI 27.6
--- NOTE | 2023-09-14 11:41 | MHC.OFFVIS ---
Vital Signs 09/14/23 11:41 Height 5 ft 10 in Weight 192 lb 10.944 oz BMI 27.6 BP 137/81 Blood Pressure Location Lt brachial Position Sitting Pulse 81 Intake Visit Reasons: 6 month follow up Intake Note: Patient returns in 6 months follow up. CC: Patient c/o chest and upper stomach discomfort, and tightness for about a month. Superintendent Tests Required: No Accompanied by: Self / Same As Patient Allergies Iodinated Contrast Media Allergy (Severe, Verified 09/14/23 11:45) Rash iv contrast Adverse Reaction (Severe, Uncoded 02/01/23 12:19) Rash HPI HPI 6 month follow up: Details: Assessment & Plan (1) Hepatic steatosis: Comment: BASELINE LABS. Laboratory Tests 06/24/22 Plt Count 234 Estimated GFR Ferritin 314 H Total Bilirubin 0.9 Direct Bilirubin 0.3 GGT 33 AST 48 H ALT 54 H Alkaline Phosphatase 60 Amylase 56 Lipase 38 Alpha Fetoprotein 1.5 JACKELINE Screen POSITIVE A JACKELINE Titer 1:80 H Anti-Mitochondrial Ab NEGATIVE Anti-Smooth Muscle Ab <20 Hepatitis A IgM Ab Nonreactive Hep Bs Antigen Negative Hep Bs Antibody NONREACTIVE Hep B Core Total Ab Reactive Hep B Core IgM Ab NON-REACTIVE Hepatitis C Ab (EIA) Nonreactive HIV 1&2 Ab/P24 Ag 4thGn Nonreactive Estimated GFR 55 Ammonia 30 CURRENT LABS . 02/01/23 13:10 WBC 7.0 Hgb 14.5 Hct 41.5 L MCV 94.5 MCH 33.0 Plt Count 247 Estimated GFR 51 Total Bilirubin 0.5 AST 36 ALT 57 H Alkaline Phosphatase 62 Alpha Fetoprotein 1.3 ULTRASOUND OF THE ABDOMEN 03/06/23 FINDINGS: PANCREAS: The pancreas appears unremarkable, without masses or ductal dilatation, with the exception of the tail which is obscured by bowel gas. ABDOMINAL AORTA: The proximal, mid, and distal segments are normal in caliber. INFERIOR VENA CAVA: Visualized portions are normal. LIVER: The liver is normal in size. The liver contour is normal. There is diffuse increased liver parenchymal echogenicity, consistent with hepatic steatosis as seen on the prior CT scan. No focal hepatic lesion. There is no intrahepatic biliary duct dilatation seen. GALLBLADDER: The patient was fasting. The gallbladder is only minimally distended without evidence of stones, sludge, polyps, wall thickening or pericholecystic fluid. COMMON BILE DUCT: Normal in caliber measuring 0.4 cm in diameter. RIGHT KIDNEY: Normal. No hydronephrosis. No renal calculi or focal parenchymal lesions. The kidney measures 11.1 cm in maximum dimension. LEFT KIDNEY: Normal. No hydronephrosis. No renal calculi or focal parenchymal lesions. The kidney measures 10.9 cm in maximum dimension. SPLEEN: Normal. The spleen measures 9.4 cm in maximum dimension. FREE FLUID: None. US/US abdomen complete IMPRESSION: Hepatic steatosis Code(s): K76.0 - Fatty (change of) liver, not elsewhere classified (2) GERD (gastroesophageal reflux disease): Code(s): K21.9 - Gastro-esophageal reflux disease without esophagitis (3) Constipation: Code(s): K59.00 - Constipation, unspecified (4) Peptic ulcer disease: Code(s): K27.9 - Peptic ulcer, site unspecified, unspecified as acute or chronic, without hemorrhage or perforation (5) Abdominal bloating: Code(s): R14.0 - Abdominal distension (gaseous) (6) Erosive esophagitis: Code(s): K22.10 - Ulcer of esophagus without bleeding Plan HE DOES NOT DRINK ETOH EXCEPT OCCASIONAL!! His transaminases have improved and this is likely because he has lost 10 labs via intentional dieting. He is down to 190 and likely will try to go to 185 but feels that 180 is too low because of sagging/wrinkles! He continues on his omeprazole and simethicone with good control of his GERD and bloating. He will be going to [facility] for a vacation and returning in April!! ROV 6 mos. Medications: Refilled simethicone after meals 180 mg PO TID 30 days 90 caps 6RF sennosides (senna) 25.8 mg (3 x 8.6 mg) PO BEDTIME 30 days 90 caps 6RF constipation pantoprazole (Protonix) 40 mg PO BID 30 days 60 tabs 6RF K22.10 - Ulcer of esophagus without bleeding, K27.9 - Peptic ulcer, site unspecified, unspecified as acute or chronic, without hemorrhage or perforation TODAYS VISIT Indian # declines He will be going on vacation and his stomach has been bothering him. He has been having left sided bloating and pain. It is worse when he bends forward over the past month. His appetite is good, he has not used the senna but he feels his BM's are normal. He feels like the senna made his stools to soft. He is also suffering HB at night when he sleeps in the right side position. All of this really sounds like gas trapping - he also was not getting the simethicone for a while (wrong pharmacy). He is going on vacation and will be returning mid September. Try just 1 senna a night and check to be sure he is getting the pantoprazole bid. ROV after 10/14 PFSH Medical History Erosive gastritis Cirrhosis Retinal vein occlusion of left eye Chronic anticoagulation Surgical History H/O colonoscopy H/O esophagogastroduodenoscopy Hx of appendectomy Social History Alcohol intake: current Alcohol intake frequency: holidays/special occasions only Patient Tobacco Use Status: Never used Tobacco Review of Systems Const Denies fatigue, Denies fever(s), Denies night sweats, Denies poor appetite and Denies weight loss Eyes Details: glasses Reports requires corrective lenses ENT Reports Normal hearing present, Denies dental pain, Denies dysphagia, Denies hearing loss, Denies mouth pain, Denies odynophagia, Denies throat swelling, Denies tongue swelling and Reports other (Dentition adequate) Card Reports no additional complaints Resp Reports no additional complaints GI Details: Reports abdominal pain, Denies melena, Reports bloating, Denies hematochezia, Reports constipation, Denies GI cramping, Denies dysphagia, Denies excessive flatus, Denies early satiety, Reports heartburn, Denies diarrhea, Denies nausea, Denies odynophagia, Denies vomiting and Denies hematemesis Skin/Breast Denies pruritus, Denies lesions, Denies rash and Denies jaundice Neuro Reports Normal hearing present and Denies Abnormal speech present Endo Denies fatigue Aller/Immun Denies throat swelling and Denies tongue swelling Physical Exam Vital Signs: Last Vital Signs Pulse 81 09/14/23 11:41 BP 137/81 09/14/23 11:41 BMI result Body Mass Index 27.6 Const General: cooperative, no acute distress, well developed and well groomed Nutritional Appearance: well nourished and obese Orientation/consciousness: oriented to person, oriented to place and oriented to time Limitations: No language barrier HEENT Head: Yes normocephalic and Yes atraumatic Eyes General: appearance normal, both eyes and all related structures Pupils: Equal, round and reactive pupils present Neck Neck: Yes normal visual inspection and Yes no lymphadenopathy Thyroid: Thyroid normal Resp Effort & Inspection: normal respiratory effort and able to speak in complete sentences Auscultation: clear to auscultation bilaterally Cardio Rate: regular rate Rhythm: regular rhythm Heart sounds: Normal, physiologic split S2 sound present Peripheral pulses: radial pulses present and posterior tibial pulses present GI Inspection: No distended, No Abdominal panniculus present and Yes obesity Palpation (GI): Soft to palpation, nontender, no guarding, not rigid and No hepatosplenomegaly present Percussion: Yes normal to percussion Auscultation: normal bowel sounds Rectal Exam - Male: Yes deferred Skin General skin exam: no rashes or lesions noted, turgor normal, skin not dry, no jaundice, No spider nevi and no striae Rashes: no rashes Nails: normal Neuro General: oriented to person, oriented to place and oriented to time Cranial nerves: Yes Equal, round and reactive pupils present and Yes Normal hearing present Speech: No Abnormal speech present Extrem General: Yes normal to inspection, No clubbing, No cyanosis and No edema Psych Appearance: grossly normal and well kempt Mental Status: mental status grossly normal Speech and movement: Normal speech and movement present Affect: normal affect Attitude: cooperative Thought process: Normal thought process present and not confabulating Thought content: Normal thought content present Insight: Limited insight present (Psych) Judgement: Limited judgement present (Psych) Assessment & Plan Assessment & Plan (1) Constipation: Code(s): K59.00 - Constipation, unspecified Category: Medical (2) Abdominal bloating: Code(s): R14.0 - Abdominal distension (gaseous) Category: Medical (3) Erosive esophagitis: Code(s): K22.10 - Ulcer of esophagus without bleeding Category: Medical (4) GERD (gastroesophageal reflux disease): Code(s): K21.9 - Gastro-esophageal reflux disease without esophagitis Category: Medical (5) History of alcohol abuse: Comment: Actually continued and current significant alcohol use/abuse 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 Laboratory Tests 06/24/22 Plt Count 234 Estimated GFR Ferritin 314 H Total Bilirubin 0.9 Direct Bilirubin 0.3 GGT 33 AST 48 H ALT 54 H Alkaline Phosphatase 60 Amylase 56 Lipase 38 Alpha Fetoprotein 1.5 JACKELINE Screen POSITIVE A JACKELINE Titer 1:80 H Anti-Mitochondrial Ab NEGATIVE Anti-Smooth Muscle Ab <20 Hepatitis A IgM Ab Nonreactive Hep Bs Antigen Negative Hep Bs Antibody NONREACTIVE Hep B Core Total Ab Reactive Hep B Core IgM Ab NON-REACTIVE Hepatitis C Ab (EIA) Nonreactive HIV 1&2 Ab/P24 Ag 4thGn Nonreactive Estimated GFR 55 Ammonia 30 CURRENT LABS . 02/01/23 13:10 WBC 7.0 Hgb 14.5 Hct 41.5 L MCV 94.5 MCH 33.0 Plt Count 247 Estimated GFR 51 Total Bilirubin 0.5 AST 36 ALT 57 H Alkaline Phosphatase 62 Alpha Fetoprotein 1.3 ULTRASOUND OF THE ABDOMEN 03/06/23 FINDINGS: PANCREAS: The pancreas appears unremarkable, without masses or ductal dilatation, with the exception of the tail which is obscured by bowel gas. ABDOMINAL AORTA: The proximal, mid, and distal segments are normal in caliber. INFERIOR VENA CAVA: Visualized portions are normal. LIVER: The liver is normal in size. The liver contour is normal. There is diffuse increased liver parenchymal echogenicity, consistent with hepatic steatosis as seen on the prior CT scan. No focal hepatic lesion. There is no intrahepatic biliary duct dilatation seen. GALLBLADDER: The patient was fasting. The gallbladder is only minimally distended without evidence of stones, sludge, polyps, wall thickening or pericholecystic fluid. COMMON BILE DUCT: Normal in caliber measuring 0.4 cm in diameter. RIGHT KIDNEY: Normal. No hydronephrosis. No renal calculi or focal parenchymal lesions. The kidney measures 11.1 cm in maximum dimension. LEFT KIDNEY: Normal. No hydronephrosis. No renal calculi or focal parenchymal lesions. The kidney measures 10.9 cm in maximum dimension. SPLEEN: Normal. The spleen measures 9.4 cm in maximum dimension. FREE FLUID: None. US/US abdomen complete IMPRESSION: Hepatic steatosis Code(s): K76.0 - Fatty (change of) liver, not elsewhere classified Category: Medical (7) Diabetes: Code(s): E11.9 - Type 2 diabetes mellitus without complications Category: Medical Plan Indian # declines He will be going on vacation and his stomach has been bothering him. He has been having left sided bloating and pain. It is worse when he bends forward over the past month. His appetite is good, he has not used the senna but he feels his BM's are normal. He feels like the senna made his stools to soft. He is also suffering HB at night when he sleeps in the right side position. All of this really sounds like gas trapping - he also was not getting the simethicone for a while (wrong pharmacy). He is going on vacation and will be returning mid September. He is agreeable to refreshing his HERNANDEZ monitoring labs and ultrasound. Try just 1 senna a night and check to be sure he is getting the pantoprazole bid. ROV after 10/14 Orders: Orders US abdomen complete 09/14/23 K76.0 - Fatty (change of) liver, not elsewhere classified, F10.11 - Alcohol abuse, in remission Comprehensive Met. Panel 09/14/23 K76.0 - Fatty (change of) liver, not elsewhere classified, F10.11 - Alcohol abuse, in remission Alpha Fetoprotein 09/14/23 K76.0 - Fatty (change of) liver, not elsewhere classified, F10.11 - Alcohol abuse, in remission Phosphatidylethanol, Blood 09/14/23 K76.0 - Fatty (change of) liver, not elsewhere classified, F10.11 - Alcohol abuse, in remission Liver Fibrosis Pnl 09/14/23 K76.0 - Fatty (change of) liver, not elsewhere classified Medications: Changed From sennosides 25.8 mg (3 x 8.6 mg) PO BEDTIME 90 tabs 10RF for constipation To sennosides (senna) 8.6 mg PO BEDTIME 90 tabs 10RF for constipation Refilled simethicone after meals 180 mg PO TID 90 caps 6RF 30 days Coding Level of Care Code Est Pt Level 3 (99690) Diagnoses Constipation K59.00 Abdominal bloating R14.0 Erosive esophagitis K22.10 GERD (gastroesophageal reflux disease) K21.9 History of alcohol abuse F10.11 Hepatic steatosis K76.0 Diabetes E11.9
== END 2023-09-14 12:30 | disposition home or self-care (01) ==
PROVIDERS: PCP Internal Medicine; Visit Provider Nurse Practitioner
DX: K59.00 Constipation, unspecified (principal); R14.0 Abdominal distension (gaseous); K22.10 Ulcer of esophagus without bleeding; K21.9 Gastro-esophageal reflux disease without esophagitis; F10.11 Alcohol abuse, in remission; K76.0 Fatty (change of) liver, not elsewhere classified; E11.9 Type 2 diabetes mellitus without complications
CPT/HCPCS: 99213

== ENCOUNTER → 2023-09-14 11:39 | Outpatient (BNVA) | payer OTHER, SELFPAY | PROVIDERS: PCP Internal Medicine; Visit Provider Nurse Practitioner | DX: K59.00 Constipation, unspecified (principal); K22.10 Ulcer of esophagus without bleeding; K21.9 Gastro-esophageal reflux disease without esophagitis; K76.0 Fatty (change of) liver, not elsewhere classified; R14.0 Abdominal distension (gaseous); F10.11 Alcohol abuse, in remission; E11.9 Type 2 diabetes mellitus without complications | CPT/HCPCS: 99212 ==

== ENCOUNTER 2023-10-14 08:13 | Outpatient (REF) | payer OTHER, SELFPAY ==
--- NOTE | ~2023-10-14 | US_ITS ---
EXAMINATION: US ABDOMEN COMPLETE CLINICAL INFORMATION: Fatty (change of) liver, not elsewhere classified. COMPARISON: Ultrasound abdomen 03/04/2023. CT abdomen 09/07/2022. TECHNIQUE: Real-time imaging of the abdominal viscera. FINDINGS: PANCREAS: Normal head and body, the tail is obscured by bowel gas ABDOMINAL AORTA: The mid and distal abdominal aorta are normal caliber. The proximal abdominal aorta is obscured by bowel gas INFERIOR VENA CAVA: Visualized portions are normal. LIVER: The liver is normal in size. The liver contour is normal. There is diffuse increased liver parenchymal echogenicity, consistent with hepatic steatosis. No focal hepatic lesion. There is no intrahepatic biliary duct dilatation seen. GALLBLADDER: Normal. The gallbladder is physiologically distended without evidence of stones, sludge, polyps, wall thickening or pericholecystic fluid. No sonographic Farias's sign. COMMON BILE DUCT: Normal in caliber measuring 0.6 cm in diameter. RIGHT KIDNEY: Normal. No hydronephrosis. No renal calculi or focal parenchymal lesions. The kidney measures 10.6 cm in maximum dimension. LEFT KIDNEY: Normal. No hydronephrosis. No renal calculi or focal parenchymal lesions. The kidney measures 10.8 cm in maximum dimension. SPLEEN: Normal. The spleen measures 10.0 cm in maximum dimension. FREE FLUID: None. US/US abdomen complete IMPRESSION: Hepatic steatosis.
== END 2023-10-14 08:14 | disposition home or self-care (01) ==
LOC: HO.US 08:13
PROVIDERS: Visit Provider Nurse Practitioner
DX: K76.0 Fatty (change of) liver, not elsewhere classified (principal); F10.11 Alcohol abuse, in remission
CPT/HCPCS: 76700

== ENCOUNTER 2023-10-19 08:50 | Outpatient (REF) | payer OTHER, SELFPAY ==
[2023-10-19 09:55] LABS: Alanine Aminotransferase 29 U/L (0-40); Albumin Level 4.4 g/dL (3.5-5.0); Alkaline Phosphatase 59 U/L (39-117); Anion Gap 10 (12-20); Aspartate Amino Transferase 21 U/L (5-37); Bilirubin Total 0.7 mg/dL (0.0-1.0); Blood Urea Nitrogen 14 mg/dL (9-16); Calcium 9.1 mg/dL (8.4-10.2); Carbon Dioxide 24 mmol/L (22-29); Chloride 112 mmol/L (96-108); Estimated Glomerular Filt Rate > 60; Glucose Random 119 mg/dL (60-115); Potassium 4.1 mmol/L (3.3-5.1); Sodium 142 mmol/L (135-145); Total Protein 7.8 g/dL (6.5-8.0)
[2023-10-20 13:38] LABS: Alpha Fetoprotein 1.8 ng/mL (<6.1)
[2023-11-04 11:19] LABS: Liver Fibrosis Stage F1-F2
[2023-11-04 11:20] LABS: Nec Inflam Act Grade A0; Nec Inflam Act Score 0.14
[2023-11-04 11:21] LABS: FIB-Alpha-2-Macroglobulin 267
[2023-11-04 11:22] LABS: FIB-Haptoglobin 213 (H)
[2023-11-04 11:23] LABS: FIB-Apolipoprotein A1 161; FIB-GGT 17; FIB-Total Bilirubin 0.7
[2023-11-04 11:24] LABS: FIB-ALT 26
[2023-11-04 11:26] LABS: Phosphatidylethanol 16:0-18:2 74 (H)
== END 2023-10-19 08:51 | disposition home or self-care (01) ==
LOC: HO.LAB 08:50
PROVIDERS: PCP Student in an Organized Health Care Education/Training Program; Visit Provider Nurse Practitioner
DX: K76.0 Fatty (change of) liver, not elsewhere classified (principal); F10.11 Alcohol abuse, in remission
CPT/HCPCS: 36415; 80053; 80321; 81596; 82105

== ENCOUNTER 2023-10-20 11:12 | Outpatient (AMB) | payer OTHER, SELFPAY ==
--- NOTE | 2023-10-20 11:15 | A.OFFVIS_ITS ---
Vital Signs 10/20/23 11:16 Height 5 ft 10 in Weight 191 lb 12.835 oz BMI 27.5 BP 125/67 Blood Pressure Location Lt brachial Position Sitting Pulse 71 Intake Visit Reasons: follow up Intake Note: Dimitry presents in the office as a follow up. CC: No concerns today but he states that he went yesterday to have his blood work done. He is not sure if the results will be in there at this time or not. [employer] Required: No Allergies Iodinated Contrast Media Allergy (Severe, Verified 10/20/23 11:17) Rash iv contrast Adverse Reaction (Severe, Uncoded 10/20/23 11:17) Rash HPI HPI follow up: Details: Assessment & Plan (1) Constipation: Code(s): K59.00 - Constipation, unspecified Category: Medical (2) Abdominal bloating: Code(s): R14.0 - Abdominal distension (gaseous) Category: Medical (3) Erosive esophagitis: Code(s): K22.10 - Ulcer of esophagus without bleeding Category: Medical (4) GERD (gastroesophageal reflux disease): Code(s): K21.9 - Gastro-esophageal reflux disease without esophagitis Category: Medical (5) History of alcohol abuse: Comment: Actually continued and current significant alcohol use/abuse 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 Laboratory Tests 06/24/22 Plt Count 234 Estimated GFR Ferritin 314 H Total Bilirubin 0.9 Direct Bilirubin 0.3 GGT 33 AST 48 H ALT 54 H Alkaline Phosphatase 60 Amylase 56 Lipase 38 Alpha Fetoprotein 1.5 JACKELINE Screen POSITIVE A JACKELINE Titer 1:80 H Anti-Mitochondrial Ab NEGATIVE Anti-Smooth Muscle Ab <20 Hepatitis A IgM Ab Nonreactive Hep Bs Antigen Negative Hep Bs Antibody NONREACTIVE Hep B Core Total Ab Reactive Hep B Core IgM Ab NON-REACTIVE Hepatitis C Ab (EIA) Nonreactive HIV 1&2 Ab/P24 Ag 4thGn Nonreactive Estimated GFR 55 Ammonia 30 CURRENT LABS . 02/01/23 13:10 WBC 7.0 Hgb 14.5 Hct 41.5 L MCV 94.5 MCH 33.0 Plt Count 247 Estimated GFR 51 Total Bilirubin 0.5 AST 36 ALT 57 H Alkaline Phosphatase 62 Alpha Fetoprotein 1.3 ULTRASOUND OF THE ABDOMEN 03/06/23 FINDINGS: PANCREAS: The pancreas appears unremarkable, without masses or ductal dilatation, with the exception of the tail which is obscured by bowel gas. ABDOMINAL AORTA: The proximal, mid, and distal segments are normal in caliber. INFERIOR VENA CAVA: Visualized portions are normal. LIVER: The liver is normal in size. The liver contour is normal. There is diffuse increased liver parenchymal echogenicity, consistent with hepatic steatosis as seen on the prior CT scan. No focal hepatic lesion. There is no intrahepatic biliary duct dilatation seen. GALLBLADDER: The patient was fasting. The gallbladder is only minimally distended without evidence of stones, sludge, polyps, wall thickening or pericholecystic fluid. COMMON BILE DUCT: Normal in caliber measuring 0.4 cm in diameter. RIGHT KIDNEY: Normal. No hydronephrosis. No renal calculi or focal parenchymal lesions. The kidney measures 11.1 cm in maximum dimension. LEFT KIDNEY: Normal. No hydronephrosis. No renal calculi or focal parenchymal lesions. The kidney measures 10.9 cm in maximum dimension. SPLEEN: Normal. The spleen measures 9.4 cm in maximum dimension. FREE FLUID: None. US/US abdomen complete IMPRESSION: Hepatic steatosis Code(s): K76.0 - Fatty (change of) liver, not elsewhere classified Category: Medical (7) Diabetes: Code(s): E11.9 - Type 2 diabetes mellitus without complications Category: Medical Plan Burmese # declines He will be going on vacation and his stomach has been bothering him. He has been having left sided bloating and pain. It is worse when he bends forward over the past month. His appetite is good, he has not used the senna but he feels his BM's are normal. He feels like the senna made his stools to soft. He is also suffering HB at night when he sleeps in the right side position. All of this really sounds like gas trapping - he also was not getting the simethicone for a while (wrong pharmacy). He is going on vacation and will be returning mid September. He is agreeable to refreshing his HERNANDEZ monitoring labs and ultrasound. Try just 1 senna a night and check to be sure he is getting the pantoprazole bid. ROV after 10/14 Orders: Orders US abdomen complete 09/14/23 K76.0 - Fatty (change of) liver, not elsewhere classified, F10.11 - Alcohol abuse, in remission Comprehensive Met. Panel 09/14/23 K76.0 - Fatty (change of) liver, not elsewhere classified, F10.11 - Alcohol abuse, in remission Alpha Fetoprotein 09/14/23 K76.0 - Fatty (change of) liver, not elsewhere classified, F10.11 - Alcohol abuse, in remission Phosphatidylethanol, Blood 09/14/23 K76.0 - Fatty (change of) liver, not elsewhere classified, F10.11 - Alcohol abuse, in remission Liver Fibrosis Pnl 09/14/23 K76.0 - Fatty (change of) liver, not elsewhere classified Medications: Changed From sennosides 25.8 mg (3 x 8.6 mg) PO BEDTIME 90 tabs 10RF for constipation To sennosides (senna) 8.6 mg PO BEDTIME 90 tabs 10RF for constipation Refilled simethicone after meals 180 mg PO TID 90 caps 6RF 30 days LABS: Laboratory Tests 10/19/23 09:25 Estimated GFR > 60 Total Bilirubin 0.7 AST 21 ALT 29 Alkaline Phosphatase 59 Liver Fibrosis Score Pending Alpha Fetoprotein Pending PEth 16:0/18.1 (POPEth) Pending ULTRASOUND OF THE ABDOMEN 10/17/23 FINDINGS: PANCREAS: Normal head and body, the tail is obscured by bowel gas ABDOMINAL AORTA: The mid and distal abdominal aorta are normal caliber. The proximal abdominal aorta is obscured by bowel gas INFERIOR VENA CAVA: Visualized portions are normal. LIVER: The liver is normal in size. The liver contour is normal. There is diffuse increased liver parenchymal echogenicity, consistent with hepatic steatosis. No focal hepatic lesion. There is no intrahepatic biliary duct dilatation seen. GALLBLADDER: Normal. The gallbladder is physiologically distended without evidence of stones, sludge, polyps, wall thickening or pericholecystic fluid. No sonographic Farias's sign. COMMON BILE DUCT: Normal in caliber measuring 0.6 cm in diameter. RIGHT KIDNEY: Normal. No hydronephrosis. No renal calculi or focal parenchymal lesions. The kidney measures 10.6 cm in maximum dimension. LEFT KIDNEY: Normal. No hydronephrosis. No renal calculi or focal parenchymal lesions. The kidney measures 10.8 cm in maximum dimension. SPLEEN: Normal. The spleen measures 10.0 cm in maximum dimension. FREE FLUID: None. US/US abdomen complete IMPRESSION: Hepatic steatosis. TODAYS VISIT He is having regular BM's but after breakfast he will have a diarrhea second BM. He does better taking the simekthicone tid with the bloating. Gerd well controlled on pantoprazole bid. He says he is not drinking regularly, only when I have parties with my family, which he says is not very often. His transaminases are improved form the last set of labs, so this seems truthful even though the PeTH is not back yet. ROV 6 mos. PFSH Medical History Erosive gastritis Cirrhosis Retinal vein occlusion of left eye Chronic anticoagulation Surgical History H/O colonoscopy H/O esophagogastroduodenoscopy Hx of appendectomy Social History Alcohol intake: current Alcohol intake frequency: holidays/special occasions only Patient Tobacco Use Status: Never used Tobacco Review of Systems Const Denies fatigue, Denies fever(s), Denies night sweats, Denies poor appetite and Denies weight loss Eyes Details: glasses Reports requires corrective lenses ENT Reports Normal hearing present, Denies dental pain, Denies dysphagia, Denies hearing loss, Denies mouth pain, Denies odynophagia, Denies throat swelling, Denies tongue swelling and Reports other (Dentition adequate) Card Reports no additional complaints Resp Reports no additional complaints GI Details: Denies abdominal pain, Denies melena, Reports bloating, Denies hematochezia, Denies constipation, Denies GI cramping, Denies dysphagia, Denies excessive flatus, Denies early satiety, Reports heartburn, Denies diarrhea, Denies nausea, Denies odynophagia, Denies vomiting and Denies hematemesis Skin/Breast Denies pruritus, Denies lesions, Denies rash and Denies jaundice Neuro Reports Normal hearing present and Denies Abnormal speech present Endo Denies fatigue Aller/Immun Denies throat swelling and Denies tongue swelling Physical Exam Vital Signs: Last Vital Signs Pulse 71 10/20/23 11:16 BP 125/67 10/20/23 11:16 BMI result Body Mass Index 27.5 Const General: cooperative, no acute distress, well developed and well groomed Nutritional Appearance: well nourished and obese Orientation/consciousness: oriented to person, oriented to place and oriented to time Limitations: No language barrier HEENT Head: Yes normocephalic and Yes atraumatic Eyes General: appearance normal, both eyes and all related structures Pupils: Equal, round and reactive pupils present Neck Neck: Yes normal visual inspection and Yes no lymphadenopathy Thyroid: Thyroid normal Resp Effort & Inspection: normal respiratory effort and able to speak in complete sentences Auscultation: clear to auscultation bilaterally Cardio Rate: regular rate Rhythm: regular rhythm Heart sounds: Normal, physiologic split S2 sound present Peripheral pulses: radial pulses present and posterior tibial pulses present GI Inspection: No distended, No Abdominal panniculus present and Yes obesity Palpation (GI): Soft to palpation, nontender, no guarding, not rigid and No hepatosplenomegaly present Percussion: Yes normal to percussion Auscultation: normal bowel sounds Rectal Exam - Male: Yes deferred Skin General skin exam: no rashes or lesions noted, turgor normal, skin not dry, no jaundice, No spider nevi and no striae Rashes: no rashes Nails: normal Neuro General: oriented to person, oriented to place and oriented to time Cranial nerves: Yes Equal, round and reactive pupils present and Yes Normal hearing present Speech: No Abnormal speech present Extrem General: Yes normal to inspection, No clubbing, No cyanosis and No edema Psych Appearance: grossly normal and well kempt Mental Status: mental status grossly normal Speech and movement: Normal speech and movement present Affect: normal affect Attitude: cooperative Thought process: Normal thought process present and not confabulating Thought content: Normal thought content present Insight: Limited insight present (Psych) Judgement: Limited judgement present (Psych) Results Reviewed Results Reviewed: Laboratory Tests 10/19/23 09:25 Estimated GFR > 60 Total Bilirubin 0.7 AST 21 ALT 29 Alkaline Phosphatase 59 Liver Fibrosis Score Pending Alpha Fetoprotein Pending [facility] 16:0/18.1 (POPEth) Pending ULTRASOUND OF THE ABDOMEN 10/17/23 FINDINGS: PANCREAS: Normal head and body, the tail is obscured by bowel gas ABDOMINAL AORTA: The mid and distal abdominal aorta are normal caliber. The proximal abdominal aorta is obscured by bowel gas INFERIOR VENA CAVA: Visualized portions are normal. LIVER: The liver is normal in size. The liver contour is normal. There is diffuse increased liver parenchymal echogenicity, consistent with hepatic steatosis. No focal hepatic lesion. There is no intrahepatic biliary duct dilatation seen. GALLBLADDER: Normal. The gallbladder is physiologically distended without evidence of stones, sludge, polyps, wall thickening or pericholecystic fluid. No sonographic Farias's sign. COMMON BILE DUCT: Normal in caliber measuring 0.6 cm in diameter. RIGHT KIDNEY: Normal. No hydronephrosis. No renal calculi or focal parenchymal lesions. The kidney measures 10.6 cm in maximum dimension. LEFT KIDNEY: Normal. No hydronephrosis. No renal calculi or focal parenchymal lesions. The kidney measures 10.8 cm in maximum dimension. SPLEEN: Normal. The spleen measures 10.0 cm in maximum dimension. FREE FLUID: None. US/US abdomen complete IMPRESSION: Hepatic steatosis. Assessment & Plan Assessment & Plan (1) Peptic ulcer disease: Code(s): K27.9 - Peptic ulcer, site unspecified, unspecified as acute or chronic, without hemorrhage or perforation Category: Medical (2) Erosive esophagitis: Code(s): K22.10 - Ulcer of esophagus without bleeding Category: Medical (3) Constipation: Code(s): K59.00 - Constipation, unspecified Category: Medical (4) Abdominal bloating: Code(s): R14.0 - Abdominal distension (gaseous) Category: Medical (5) GERD (gastroesophageal reflux disease): Code(s): K21.9 - Gastro-esophageal reflux disease without esophagitis Category: Medical (6) History of alcohol abuse: Comment: Actually continued and current significant alcohol use/abuse Code(s): F10.11 - Alcohol abuse, in remission Category: Medical (7) Hepatic steatosis: Comment: BASELINE LABS. Laboratory Tests 06/24/22 Plt Count 234 Estimated GFR Ferritin 314 H Total Bilirubin 0.9 Direct Bilirubin 0.3 GGT 33 AST 48 H ALT 54 H Alkaline Phosphatase 60 Amylase 56 Lipase 38 Alpha Fetoprotein 1.5 JACKELINE Screen POSITIVE A JACKELINE Titer 1:80 H Anti-Mitochondrial Ab NEGATIVE Anti-Smooth Muscle Ab <20 Hepatitis A IgM Ab Nonreactive Hep Bs Antigen Negative Hep Bs Antibody NONREACTIVE Hep B Core Total Ab Reactive Hep B Core IgM Ab NON-REACTIVE Hepatitis C Ab (EIA) Nonreactive HIV 1&2 Ab/P24 Ag 4thGn Nonreactive Estimated GFR 55 Ammonia 30 CURRENT LABS . 02/01/23 13:10 WBC 7.0 Hgb 14.5 Hct 41.5 L MCV 94.5 MCH 33.0 Plt Count 247 Estimated GFR 51 Total Bilirubin 0.5 AST 36 ALT 57 H Alkaline Phosphatase 62 Alpha Fetoprotein 1.3 ULTRASOUND OF THE ABDOMEN 10/17/23 FINDINGS: PANCREAS: Normal head and body, the tail is obscured by bowel gas ABDOMINAL AORTA: The mid and distal abdominal aorta are normal caliber. The proximal abdominal aorta is obscured by bowel gas INFERIOR VENA CAVA: Visualized portions are normal. LIVER: The liver is normal in size. The liver contour is normal. There is diffuse increased liver parenchymal echogenicity, consistent with hepatic steatosis. No focal hepatic lesion. There is no intrahepatic biliary duct dilatation seen. GALLBLADDER: Normal. The gallbladder is physiologically distended without evidence of stones, sludge, polyps, wall thickening or pericholecystic fluid. No sonographic Farias's sign. COMMON BILE DUCT: Normal in caliber measuring 0.6 cm in diameter. RIGHT KIDNEY: Normal. No hydronephrosis. No renal calculi or focal parenchymal lesions. The kidney measures 10.6 cm in maximum dimension. LEFT KIDNEY: Normal. No hydronephrosis. No renal calculi or focal parenchymal lesions. The kidney measures 10.8 cm in maximum dimension. SPLEEN: Normal. The spleen measures 10.0 cm in maximum dimension. FREE FLUID: None. US/US abdomen complete IMPRESSION: Hepatic steatosis. Code(s): K76.0 - Fatty (change of) liver, not elsewhere classified Category: Medical Plan He is having regular BM's but after breakfast he will have a diarrhea second BM. He does better taking the simekthicone tid with the bloating. Gerd well controlled on pantoprazole bid. He says he is not drinking regularly, only when I have parties with my family, which he says is not very often. His transaminases are improved form the last set of labs, so this seems truthful even though the PeTH is not back yet. ROV 6 mos. Medications: Refilled pantoprazole 40 mg PO BID 60 tabs 10RF K22.10 - Ulcer of esophagus without bleeding, K27.9 - Peptic ulcer, site unspecified, unspecified as acute or chronic, without hemorrhage or perforation simethicone after meals 180 mg PO TID 30 days 90 caps 6RF Coding Level of Care Code Est Pt Level 3 ([id number]) Diagnoses Peptic ulcer disease K27.9 Erosive esophagitis K22.10 Constipation K59.00 Abdominal bloating R14.0 GERD (gastroesophageal reflux disease) K21.9 History of alcohol abuse F10.11 Hepatic steatosis K76.0
[2023-10-20 11:16] VITALS: BP 125/67; PULSE 71; BMI 27.5
== END 2023-10-20 11:37 | disposition home or self-care (01) ==
PROVIDERS: PCP Internal Medicine; Visit Provider Nurse Practitioner
DX: K27.9 Peptic ulcer, site unspecified, unspecified as acute or chronic, without hemorrhage or perforation (principal); K22.10 Ulcer of esophagus without bleeding; K59.00 Constipation, unspecified; R14.0 Abdominal distension (gaseous); K21.9 Gastro-esophageal reflux disease without esophagitis; F10.11 Alcohol abuse, in remission; K76.0 Fatty (change of) liver, not elsewhere classified
CPT/HCPCS: 99213

== ENCOUNTER → 2023-10-20 11:12 | Outpatient (BNVA) | payer OTHER, SELFPAY | PROVIDERS: PCP Internal Medicine; Visit Provider Nurse Practitioner | DX: K27.9 Peptic ulcer, site unspecified, unspecified as acute or chronic, without hemorrhage or perforation (principal); K22.10 Ulcer of esophagus without bleeding; K59.00 Constipation, unspecified; K76.0 Fatty (change of) liver, not elsewhere classified; K21.9 Gastro-esophageal reflux disease without esophagitis; R14.0 Abdominal distension (gaseous); F10.11 Alcohol abuse, in remission | CPT/HCPCS: 99212 ==